=== PATIENT | female | born 1965 | race Caucasian/White ===

== ENCOUNTER 2016-09-16 09:41 | Inpatient (IN) | payer MEDICAID ==
[2016-09-16] VITALS (8 sets, daily range): BP systolic 101–122; BP diastolic 53–75
[~2016-09-16] VITALS: Ht 165.1 cm; Wt 90.6 kg
--- NOTE | ~2016-09-16 | PR ---
[place], [place] PROGRESS NOTE NAME: DEBORA GUTIERREZ UNIT #: [id number] ROOM: 407 DOCTOR: JOHNNY JAIME MD BIRTHDATE: [birth year] DOS: 09/19/2016 HISTORY OF PRESENT ILLNESS: A 51-year-old patient who was presented with chief complaint of multiple medical problems, among which has been atypical chest pain, and she has been investigated endoscopically, and she was found to have gastritis, hiatal hernia and reflux. The patient has been treated with PPI and Gaviscon. Significant improvement has been noticed. PAST MEDICAL HISTORY: 1. Associated with gastroesophageal reflux, suspected history of Crohn's that she is not on medication for it, and she does not have diarrhea. 2. Hyperlipidemia. 3. Gastroesophageal reflux. PAST SURGICAL HISTORY: Oophorectomy, appendectomy, cholecystectomy, tonsillectomy. LABORATORY DATA: Reviewed. Records reviewed. Doppler studies were noticed 50% stenosis bilateral internal carotid. Basic metabolic panel: Potassium of 3.0, which is addressed by staff. H and H of 10 and 31. Differential within normal limits. REVIEW OF SYSTEMS: No hematemesis, no hematochezia, no shortness of breath, no chest pain. PHYSICAL EXAMINATION: VITAL SIGNS: Stable. HEENT: Head normocephalic, nontraumatic. Mouth and buccal mucosa benign. NECK: Supple, no thyromegaly, no cervical lymphadenopathy. CHEST: Symmetric anatomy, equal expansion. No wheeze. No rhonchi. ABDOMEN: Soft. No hepato-organomegaly, no pulsatile mass. HEART: Normal sinus rhythm, no gallop, no murmur. EXTREMITIES: Benign dry. No cyanosis, no pedal edema. NEUROLOGIC: Alert and oriented. IMPRESSION: Gastritis, hiatal hernia, gastroesophageal reflux leading to atypical chest pain. PLAN: Protonix 40 mg daily, Gaviscon Extra Strength one tablet at bedtime. Antireflux: Elevation of the head of the bed, dietary modification. [place], [place] PROGRESS NOTE NAME: DEBORA GUTIERREZ UNIT #: [id number] ROOM: 407 DOCTOR: JOHNNY JAIME MD BIRTHDATE: [birth year] JOHNNY JAIME MD CM:RICARDO 1146 2025 JOHNNY JAIME MD 10/22/16 1147 interface
--- NOTE | ~2016-09-16 | CON ---
[place], [place] REPORT OF CONSULTATION NAME: DEBORA [facility]IERREZ [id number] UNIT #: [id number] ROOM: 407 DOCTOR: JOHNNY JAIME MD BIRTHDATE: [birth year] DOS: 09/17/2016 GASTROENDOSCOPIC REPORT HISTORY OF PRESENT ILLNESS: This is a 51-year-old patient who has presented with multiple medical problems, among which has been atypical chest pain, dyspepsia, reflux symptomatology. She is telling me that she has a history of Crohn's disease over the past 10 years, but she has never been treated for. She says I feel better with observing my diet. The patient had a C. diff done which was negative, Myocardial SPECT results, normal left ventricular wall motion at 65% was noticed. Hemoglobin A1c 5.4. Comprehensive metabolic panel: BUN and creatinine normal. Electrolytes hypernatremic, hyperchloremic. Checked to see if that fluid going into the patient is normal saline. Her carbon dioxide was 18. Her phosphorus and magnesium within normal limits. Cholesterol 61. B12/folate was low. PAST MEDICAL HISTORY: Hyperlipidemia, spinal stenosis, suspected Crohn's disease by history, however, on no medication, and gastroesophageal reflux. PAST SURGICAL HISTORY: Teeth extraction, appendectomy, oophorectomy, cholecystectomy, and tonsillectomy. SOCIAL HISTORY: Smoker until 2 years ago. Nonalcohol consumer. FAMILY HISTORY: Noncontributory. ALLERGIES: FLEXERIL, TESSALON, HYDROCODONE, IBUPROFEN, ROBAXIN, REGLAN, ZOFRAN. MEDICATIONS: List has been reviewed. REVIEW OF SYSTEMS: HEENT: Denies double vision, blurred vision. RESPIRATORY: Denies shortness of breath. CARDIOVASCULAR: Denies chest pain. DIGESTIVE SYSTEM: No hematemesis, no hematochezia, chest pain or nausea. PHYSICAL EXAMINATION: GENERAL: Nontoxic VITAL SIGNS: Stable. HEENT: Head normocephalic, nontraumatic. Mouth and buccal mucosa benign. NECK: Supple, no thyromegaly. CHEST: Symmetric anatomy, equal expansion. HEART: Normal sinus rhythm, no gallop, no murmur. ABDOMEN: Soft. No hepato-organomegaly. Bowel sounds present. No pulsatile mass. EXTREMITIES: No cyanosis, no pedal edema. NEUROLOGIC: Alert, oriented to time, place and person. IMPRESSION: Nausea, epigastric distress, atypical chest pain, ruling out reflux, history of Crohn's disease, history of hypernatremic, hyperchloremic, [place], [place] REPORT OF CONSULTATION NAME: DEBORA GUTIERREZ UNIT #: [id number] ROOM: 407 DOCTOR: YENI RUBIO,JOHNNY BIRTHDATE: [birth year] status post likely secondary to post normal saline correction, history of anemia, normochromic indices. However, her B12 and folate 249 and 4.0 respectively. PLAN AND DISCUSSION: We are going to organize for endoscopic assessment of upper GI tract as far as Crohn's is concerned. She requires followup as an outpatient and chronic reassessment. Thank you very much indeed. JOHNNY JAIME MD CM:CONSTR:REPORT OF CONSULTATION 1400 10/27/16 0956 interface
--- NOTE | ~2016-09-16 | CON ---
[place], [place] REPORT OF CONSULTATION NAME: DEBORA GUTIERREZ UNIT #: [id number] ROOM: 407 DOCTOR: JOHNNY JAIME MD BIRTHDATE: [birth year] DOS: 09/19/2016 HISTORY OF PRESENT ILLNESS: A 51-year-old patient who was presented with chief complaint of multiple medical problems, among which has been atypical chest pain, and she has been investigated endoscopically, and she was found to have gastritis, hiatal hernia and reflux. The patient has been treated with PPI and Gaviscon. Significant improvement has been noticed. PAST MEDICAL HISTORY: 1. Associated with gastroesophageal reflux, suspected history of Crohn's that she is not on medication for it, and she does not have diarrhea. 2. Hyperlipidemia. 3. Gastroesophageal reflux. PAST SURGICAL HISTORY: Oophorectomy, appendectomy, cholecystectomy, tonsillectomy. LABORATORY DATA: Reviewed. Records reviewed. Doppler studies were noticed 50% stenosis bilateral internal carotid. Basic metabolic panel: Potassium of 3.0, which is addressed by staff. H and H of 10 and 31. Differential within normal limits. REVIEW OF SYSTEMS: No hematemesis, no hematochezia, no shortness of breath, no chest pain. PHYSICAL EXAMINATION: VITAL SIGNS: Stable. HEENT: Head normocephalic, nontraumatic. Mouth and buccal mucosa benign. NECK: Supple, no thyromegaly, no cervical lymphadenopathy. CHEST: Symmetric anatomy, equal expansion. No wheeze. No rhonchi. ABDOMEN: Soft. No hepato-organomegaly, no pulsatile mass. HEART: Normal sinus rhythm, no gallop, no murmur. EXTREMITIES: Benign dry. No cyanosis, no pedal edema. NEUROLOGIC: Alert and oriented. IMPRESSION: Gastritis, hiatal hernia, gastroesophageal reflux leading to atypical chest pain. PLAN: Protonix 40 mg daily, Gaviscon Extra Strength one tablet at bedtime. Antireflux: Elevation of the head of the bed, dietary modification. [place], [place] REPORT OF CONSULTATION NAME: DEBORA GUTIERREZ UNIT #: [id number] ROOM: 407 DOCTOR: JOHNNY JAIME MD BIRTHDATE: [birth year] JOHNNY JAIME MD CM:CONSTR:REPORT OF CONSULTATION 1146 10/22/16 1152 UDAY SINGLETARY.TM
--- NOTE | ~2016-09-16 | CON ---
[place], [place] REPORT OF CONSULTATION NAME: DEBORA PAIGE UNIT #: [id number] ROOM: 407 DOCTOR: FAB RUBIO,MONICA BIRTHDATE: [birth year] DOS: 09/17/2016 ADDENDUM CARDIOLOGY CONSULTATION REASON FOR CONSULTATION: Chest pain. This note is an addendum to the note dictated by Dr. Danilo Rodriguez. His exam and assessment reflects my work. I personally examined the patient. Rhythm strips, labs and imaging studies were reviewed. Ms. Paige has intermittent atypical chest pain, which is sharp, substernal area and the cardiac enzymes were negative. PHYSICAL EXAMINATION: FOCUSED CARDIAC EXAM: Heart was regular rhythm. No S3. Grade 1/6 systolic murmur. EXTREMITIES: Showed trace edema. Distal pulses are palpable. LUNGS: A few scattered rhonchi. IMPRESSION: 1. Chest pain, atypical. 2. Nausea, vomiting and abdominal pain. 3. History of Crohn's disease. 4. Diabetes type 2. 5. Dyslipidemia. RECOMMENDATIONS 1. She has no further chest pain. 2. Continue current medications. 3. Lexiscan stress today for evaluation of chest pain. 4. If the stress test is unremarkable, she will need further testing from the GI consultants. 5. Risk factor modification discussed. 6. Check a 2D echo for LV function and valvular function. MONICA SANON MD CM:CONSTR:REPORT OF CONSULTATION 0216 09/20/16 1408 interface
--- NOTE | ~2016-09-16 | O ---
[place], [place] OPERATIVE NOTE NAME: DEB[facility]A [facility]UTIERREZ [id number] UNIT #: [id number] ROOM: 407 DOCTOR: JOHNNY JAIME MD BIRTHDATE: [birth year] DOS: 09/17/2016 HISTORY OF PRESENT ILLNESS: A 51-year-old patient who has presented with chief complaint of epigastric abdominal pain, dyspepsia, atypical chest pain, undergoing investigation. PROCEDURE: Today's procedure part of investigation is panendoscopy plus biopsy. PREMEDICATION: Versed and Diprivan. SCOPE: Olympus forward-viewing gastroscope Q10 video. REPORT: After putting the patient in the left lateral position and after application of lubricant to the scope, the scope was introduced. Thereafter, under direct visualization, I advanced through the length of esophagus without difficulty into gastric pouch. A small hiatal hernia noticed. Gastritis of mild degree was seen. Antrum was biopsied. Duodenal bulb, second and third part within normal limits. The patient extubated, tolerated procedure well. IMPRESSION: Small hiatal hernia, gastritis, status post biopsy. PLAN AND DISCUSSION: Protonix 40 mg q. day. Gaviscon 1 tablet at bedtime. Elevation of the head of the bed 6 inches all time and clinical reassessment. JOHNNY JAIME MD CM:OPRECORD:OPERATIVE NOTE 1509 190 JOHNNY JAIME MD 09/17/16 190 interface
--- NOTE | ~2016-09-16 | ST ---
[place], [place] EXERCISE STRESS TEST REPORT NAME: [facility]IER[facility]Z [facility]: [id number] UNIT #: [id number] ROOM: 407 DOCTOR: FAB RUBIO,MONICA BIRTHDATE: [birth year] DOS: 09/17/2016 LEXISCAN STRESS TEST REASON FOR TEST: Evaluation of chest pain. PHYSICAL EXAMINATION: NECK: Supple. LUNGS: Clear anteriorly. HEART: Regular rhythm. PROTOCOL: Lexiscan protocol. Maximum heart rate 112. Peak blood pressure 100/63. SYMPTOMS: The patient had some chest tightness and also nausea and vomiting requiring intravenous aminophyllin 50 mg. EKG: Resting EKG showed sinus rhythm. Stress EKG showed no ischemia, no arrhythmias. The patient had incomplete right bundle branch block with ST-T changes in lead V1 to V3 on the resting EKG. The stress EKG showed no ischemia, no arrhythmias. POST-STRESS COMPLICATIONS: None. The patient received a total of 0.4 mg of Lexiscan. Chest tightness resolved spontaneously, had nausea responded to intravenous aminophyllin 50 mg. MONICA SANON MD CM:STRESS:EXERCISE STRESS TEST REPORT 1654 0139 MONICA SANON MD
[~2016-09-16 09:41] MED LIST: ASPIRIN81 M1 PO; MOTRIN800 MG PO; NEXIUM40 MG PO; OXYCODONE HCL5 MG PO; OXYCODONE5 M1 PO; PHENERGAN25 M3 PO; PREDNISONE50 MG PO
[2016-09-16] MEDS ORDERED: Lopressor25 MG PO (09:50)
[2016-09-16] MEDS ORDERED: ATORVASTATIN CA40 M1 PO (09:50)
[2016-09-16] MEDS ORDERED: OXYCODONE HCL5 MG PO (09:50)
[2016-09-16] MEDS ORDERED: ASPIRIN81 M1 PO (09:51)
[2016-09-16 10:34] LABS: HEMATOCRIT 46.3 % (37.0-47.0); HEMOGLOBIN 15.3 g/dl (12.0-16.0); MEAN CELL VOLUME 87.4 fl (81.0-99.0); MEAN CORPUSCULAR HGB 28.9 pg (27.0-31.0); MEAN PLATELET VOLUME 9.7 fl (9.6-12.3); PLATELET COUNT AUTOMATED 334 10*3/uL (130-400); RED CELL DISTRI WIDTH 13.7 % (0-14.5); WHITE BLOOD COUNT 22.5 10*3/uL (4.8-10.8)
[2016-09-16 10:50] LABS: ALBUMIN 4.5 gm/dl (3.1-4.5); ALKALINE PHOSPHATASE 137 U/L (45-117); BILIRUBIN, TOTAL 0.6 mg/dl (0.2-1.0); BUN 21 mg/dl (7-24); CARBON DIOXIDE 21 mmol/L (21-32); CHLORIDE 104 mmol/L (98-107); EST GLOM FILT AFRICAN AMERICAN 35 ml/min; GLUCOSE 166 mg/dL (65-99); POTASSIUM 3.8 mmol/L (3.5-5.1); SGOT/AST 16 IU/L (3-35); SGPT/ALT 25 U/L (12-78); SODIUM 138 mmol/L (136-145); TOTAL PROTEIN 9.2 gm/dL (6.4-8.2)
[2016-09-16 10:51] LABS: EOSINOPHIL # 0.5 10*3/uL (0-0.4); EOSINOPHILS 2 % (1-4); LYMPHOCYTE # 1.4 10*3/uL (1.3-4.4); MONOCYTE # 0.9 10*3/uL (0.1-1.0); NEUTROPHIL # 19.8 10*3/uL (2.3-7.9); NEUTROPHILS 88 % (47-73); TOTAL CELLS COUNTED 100 #CELLS
[2016-09-16 10:52] LABS: PLATELET SUFFICIENCY NORMAL (NORMAL)
[2016-09-16 10:53] LABS: TROPONIN I < 0.015 ng/ml (<0.5)
[2016-09-16 12:31] LABS: LA>2 REFLEX 2 HR DRAW NOW
[2016-09-16] MEDS ORDERED: OXYCODONE5 M1 PO (14:25)
[2016-09-16] MEDS ORDERED: METOPROLOL25 MG PO (14:26)
[2016-09-16 14:55] LABS: LA>2 REFLEX 4 HR DRAW NOW
[2016-09-16 18:10] LABS: CKMB 0.6 ng/ml (0.5-3.6); CPK 48 U/L (26-192)
[2016-09-16 18:11] LABS: TROPONIN I < 0.015 ng/ml (<0.5)
[2016-09-17] VITALS (8 sets, daily range): BP systolic 90–128; BP diastolic 44–74
[2016-09-17 00:43] LABS: CKMB 0.5 ng/ml (0.5-3.6); CPK 55 U/L (26-192)
[2016-09-17 00:44] LABS: TROPONIN I < 0.015 ng/ml (<0.5)
[2016-09-17 06:18] LABS: BASO % 0.2 % (0.0-1.0); IG # 0.1 10*3/uL (0.0-0.1); LYMPH # 0.7 10*3/uL (1.3-4.4); LYMPH % 5.6 % (27.0-41.0); MEAN CELL VOLUME 84.7 fl (81.0-99.0); MEAN CORPUSCULAR HGB 28.8 pg (27.0-31.0); MEAN PLATELET VOLUME 9.7 fl (9.6-12.3); MONO # 0.5 10*3/uL (0.1-1.0); MONO % 4.2 % (3.0-9.0); NEUT % 89.3 % (47.0-73.0); PLATELET COUNT AUTOMATED 252 10*3/uL (130-400); RED BLOOD COUNT 3.54 10*6/uL (4.10-5.10); RED CELL DISTRI WIDTH 13.9 % (0-14.5); WHITE BLOOD COUNT 12.3 10*3/uL (4.8-10.8)
[2016-09-17 06:20] LABS: HEMOGLOBIN 10.2 g/dl (12.0-16.0)
[2016-09-17 06:26] LABS: CKMB 1.1 ng/ml (0.5-3.6); CPK 60 U/L (26-192)
[2016-09-17 06:29] LABS: TROPONIN I < 0.015 ng/ml (<0.5)
[2016-09-17 06:32] LABS: VITAMIN D, 25-HYDROXY 11.8 ng/mL (30-100)
[2016-09-17 06:33] LABS: FOLIC ACID 4.08 ng/mL (>5.38)
[2016-09-17 06:37] LABS: ALBUMIN 3.1 gm/dl (3.1-4.5); ALKALINE PHOSPHATASE 90 U/L (45-117); BILIRUBIN, TOTAL 0.3 mg/dl (0.2-1.0); CARBON DIOXIDE 18 mmol/L (21-32); CHLORIDE 115 mmol/L (98-107); CHOLESTEROL 144 mg/dL (<200); EST GLOM FILT AFRICAN AMERICAN > 60 ml/min; GLUCOSE 120 mg/dL (65-99); HDL CHOLESTEROL 61 mg/dl (40-60); LDL CHOLESTEROL 70 mg/dL (9-159); MAGNESIUM 1.7 mg/dL (1.5-2.1); POTASSIUM 3.6 mmol/L (3.5-5.1); SGOT/AST 12 IU/L (3-35); SGPT/ALT 19 U/L (12-78); SODIUM 146 mmol/L (136-145); THYROID STIM HORMONE (HS) 0.288 uIU/ml (0.358-4.75); TOTAL PROTEIN 6.1 gm/dL (6.4-8.2); TRIGLYCERIDES 67 mg/dl (<150); VLDL CHOLESTEROL 13 mg/dL (6-40)
[2016-09-17 06:38] LABS: BUN 11 mg/dl (7-24)
[2016-09-17 06:43] LABS: HEMOGLOBIN A1c 5.4 % (4.8-5.6)
[2016-09-18] VITALS: BP 104/54
[2016-09-18 06:22] LABS: BASO % 0.3 % (0.0-1.0); EOS # 0.1 10*3/uL (0.0-0.4); HEMATOCRIT 31.5 % (37.0-47.0); HEMOGLOBIN 10.2 g/dl (12.0-16.0); IG # 0.1 10*3/uL (0.0-0.1); LYMPH # 1.7 10*3/uL (1.3-4.4); LYMPH % 17.4 % (27.0-41.0); MEAN CORPUSCULAR HGB 28.6 pg (27.0-31.0); MEAN CORPUSCULAR HGB CONC 32.4 g/dl (33.0-37.0); MEAN PLATELET VOLUME 9.5 fl (9.6-12.3); MONO # 0.9 10*3/uL (0.1-1.0); MONO % 9.4 % (3.0-9.0); NEUT % 71.1 % (47.0-73.0); PLATELET COUNT AUTOMATED 230 10*3/uL (130-400); RED BLOOD COUNT 3.57 10*6/uL (4.10-5.10); RED CELL DISTRI WIDTH 14.3 % (0-14.5); WHITE BLOOD COUNT 9.8 10*3/uL (4.8-10.8)
[2016-09-18 06:23] LABS: BUN 11 mg/dl (7-24); CARBON DIOXIDE 23 mmol/L (21-32); CHLORIDE 110 mmol/L (98-107); EST GLOM FILT AFRICAN AMERICAN > 60 ml/min; FREE T4 1.44 ng/dl (0.76-1.46); GLUCOSE 92 mg/dL (65-99); SODIUM 145 mmol/L (136-145)
[2016-09-18 06:25] LABS: MEAN CELL VOLUME 88.2 fl (81.0-99.0)
[2016-09-18 08:00] VITALS: BP 118/62
[2016-09-18 12:00] VITALS: BP 105/50
[2016-09-18 16:00] VITALS: BP 106/59
[2016-09-18 20:00] VITALS: BP 105/59
[2016-09-19] VITALS: BP 99/55
[2016-09-19 08:00] VITALS: BP 130/63
[2016-09-19] MEDS ORDERED: D-1000 185 MG-11 TAB PO (11:51)
[2016-09-19] MEDS ORDERED: DICYCLOMINE HCL10 MG PO (11:51)
[2016-09-19] MEDS ORDERED: PREDNISONE50 MG PO (11:51)
[2016-09-19] MEDS ORDERED: B121000 MCG/1 IM (11:51)
[2016-09-19] MEDS ORDERED: PHARMASSURE FO0.4 MG PO (11:51)
[2016-09-19] MEDS ORDERED: PHENERGAN25 M3 PO (11:51)
[2016-09-19] MEDS ORDERED: FLAGYL500 MG PO (11:54)
[2016-09-19] MEDS ORDERED: Ciprofloxacin500 MG PO (11:54)
[2016-09-19 12:00] VITALS: BP 99/46
[2016-09-19 16:00] VITALS: BP 116/72
== END 2016-09-19 17:36 | disposition home or self-care (01) | DRG 871 ==
LOC: ED 09:41 → 4E 12:28 → EDHOLD 12:28 → 4E 13:18
PROVIDERS: Internal Medicine; Nurse Practitioner Family
PROC: 0DB68ZX Excision of Stomach, Via Natural or Artificial Opening Endoscopic, Diagnostic (ICD-10-PCS; principal; 2016-09-17)
DX: A41.9 Sepsis, unspecified organism (principal); N17.0 Acute kidney failure with tubular necrosis; K50.011 Crohn's disease of small intestine with rectal bleeding; E87.0 Hyperosmolality and hypernatremia; R65.20 Severe sepsis without septic shock; K52.9 Noninfective gastroenteritis and colitis, unspecified; E11.65 Type 2 diabetes mellitus with hyperglycemia; E78.5 Hyperlipidemia, unspecified; K21.9 Gastro-esophageal reflux disease without esophagitis; M54.31 Sciatica, right side; K44.9 Diaphragmatic hernia without obstruction or gangrene; M48.00 Spinal stenosis, site unspecified; S81.811A Laceration without foreign body, right lower leg, initial encounter; K29.70 Gastritis, unspecified, without bleeding; Z90.710 Acquired absence of both cervix and uterus; Z90.721 Acquired absence of ovaries, unilateral; Z90.49 Acquired absence of other specified parts of digestive tract; Z98.890 Other specified postprocedural states; Z87.891 Personal history of nicotine dependence; Z82.49 Family history of ischemic heart disease and other diseases of the circulatory system; Z80.0 Family history of malignant neoplasm of digestive organs; Z82.0 Family history of epilepsy and other diseases of the nervous system; Z88.6 Allergy status to analgesic agent; Z88.8 Allergy status to other drugs, medicaments and biological substances; Z79.82 Long term (current) use of aspirin; Z79.899 Other long term (current) drug therapy; X58.XXXA Exposure to other specified factors, initial encounter; Y93.89 Activity, other specified; Y92.89 Other specified places as the place of occurrence of the external cause; Y99.8 Other external cause status

== ENCOUNTER 2017-01-31 11:21 | Inpatient (IN) | payer MEDICAID ==
[2017-01-31] VITALS (7 sets, daily range): BP systolic 105–140; BP diastolic 60–85
[~2017-01-31] VITALS: Ht 165 cm; Wt 90.9 kg
--- NOTE | ~2017-01-31 | ST ---
[place], [place] EXERCISE STRESS TEST REPORT NAME: [facility]UTIERREZ [id number] UNIT #: [id number] ROOM: 402 DOCTOR: EVELYNE RUBIO,NARENDRA BIRTHDATE: [birth year] DOS: INDICATION: Chest pain. PROCEDURE: The patient was brought into the stress lab. The procedure was explained with risks, benefits, and alternatives. Lexiscan was injected. Following the injection, there was no evidence of any significant ST or T-wave changes suggestive of myocardial ischemia. No arrhythmias were noted. Resting blood pressure 116/78 with ending blood pressure 112/64. Electrocardiogram: Resting electrocardiogram showed normal sinus rhythm with heart rate of 65 with RSR prime in V1. Nonspecific ST changes specifically in V1 through V3. Following the infusion, there was no evidence of any significant ST or T-wave changes suggestive of myocardial ischemia. No arrhythmias were noted. SUMMARY: 1. Adequate Lexiscan. 2. Negative Lexiscan stress test for stress-induced myocardial ischemia. 3. No arrhythmias were noted. 4. Nuclear images will be reported separately. NARENDRA STUBBS MD CM:STRESS:EXERCISE STRESS TEST REPORT 1207 2252 NARENDRA STUBBS MD
--- NOTE | ~2017-01-31 | CON ---
[place], [place] REPORT OF CONSULTATION NAME: DEBORA GUTIERREZ UNIT #: [id number] ROOM: 402 DOCTOR: JOHNNY JAIME MD BIRTHDATE: [birth year] DOS: HISTORY OF PRESENT ILLNESS: A 51-year-old patient who has presented with chief complaint of epigastric abdominal pain. The patient's pain location is subxiphoid. Patient with chronic lower back pain. The patient on oxycodone. The patient carries ambiguous history of Crohn's disease for which she has never been documented neither she has been on medication for. Initial white blood cell was 11, H and H of 13 and 38, differential INR was 0.9. Comprehensive metabolic panel essentially unremarkable. Electrolyte, liver function tests, troponin all within normal limits. Chest x-ray was normal. Lipase was 91, normal. CT scan of the abdomen and pelvis, status post cholecystectomy, normal CT scan. PAST MEDICAL HISTORY: Associated borderline obesity, hyperlipidemia, congestive heart failure, hiatal hernia, gastroesophageal reflux. PAST SURGICAL HISTORY: Appendectomy, chronic lower back surgery, teeth extraction, cholecystectomy, tonsillectomy. SOCIAL HISTORY: Smoker, nonalcohol consumer actively. FAMILY HISTORY: Noncontributory. ALLERGIES: Multiple medications recognized including with metoclopramide. MEDICATIONS: List reviewed including esomeprazole 40 mg daily, atorvastatin and aspirin. Ipratropium, albuterol, oxycodone. REVIEW OF SYSTEMS: HEENT: Denies double vision, blurred vision. RESPIRATORY: Denies shortness of breath. CARDIOVASCULAR: Denies chest pain. DIGESTIVE SYSTEM: Subxiphoid pain and ambiguous undocumented Crohn's disease. PHYSICAL EXAMINATION: VITAL SIGNS: Stable. HEENT: Head normocephalic, nontraumatic. Mouth and buccal mucosa benign, edentulous. NECK: Supple, no thyromegaly. CHEST: Symmetric anatomy, equal expansion. No wheeze, no rhonchi. HEART: Normal sinus rhythm, no gallop, no murmur. ABDOMEN: Obese, soft. No hepato-organomegaly. Bowel sounds present. No pulsatile mass. EXTREMITIES: No cyanosis, no pedal edema. NEUROLOGIC: Alert, oriented to time, place, person. GENERAL: Nontoxic. Patient does not appear to be the distressed. IMPRESSION: Epigastric distress, history of hiatal hernia, multiple nonspecific complaints. [place], [place] REPORT OF CONSULTATION NAME: DEBORA GUTIERREZ UNIT #: [id number] ROOM: 402 DOCTOR: JOHNNY JAIME MD BIRTHDATE: [birth year] OTHER ADJUNCTIVE DIAGNOSES: As outlined in the paragraph of past medical and surgical history. PLAN AND DISCUSSION: Endoscopy of upper tract. Thank you very much indeed. JOHNNY JAIME MD CM:CONSTR:REPORT OF CONSULTATION 1224 02/03/17 0240 interface
--- NOTE | ~2017-01-31 | CON ---
[place], [place] REPORT OF CONSULTATION NAME: DEBORA GUTIERREZ UNIT #: [id number] ROOM: 402 DOCTOR: NARENDRA STUBBS MD BIRTHDATE: [birth year] DOS: 02/03/2017 REQUESTING PHYSICIAN: Dr. Jarvis. REASON FOR CONSULTATION: Chest pain consistent with angina. ASSESSMENT: 1. Current presentation with sudden onset of severe chest pain woke patient up in the morning, associated with nausea, vomiting, and diaphoresis. 2. Progressive complaint of heaviness, tightness over the past 3-4 months. 3. PND, orthopnea along with lower extremity edema with weight gain over the past month. 4. Symptomatic palpitation. 5. Diabetes. 6. Hyperlipidemia. 7. Obesity with probability of obstructive sleep apnea. 8. Early family history of heart disease. 9. Previous history of tobacco abuse. PLAN: 1. Cycle cardiac enzymes. 2. Keep patient n.p.o. for a walking stress test. 3. Initiate Enteric-coated aspirin 81 mg. 4. Lopressor 12.5 mg 1 tablet p.o. b.i.d. 5. Imdur 30 mg 1 tab p.o. every day. 6. Lipid management for an LDL less than 70 mg/dL (The patient already on Lipitor). 7. Consider sleep study. 8. Early followup in our clinic in [place] within 1-2 weeks. 9. Call for any change in symptoms. 10. Exercise, weight loss. HISTORY AND PHYSICAL: The patient is a pleasant 51-year-old female unknown to our practice, who was referred by Dr. Jarvis for further evaluation of complaint of chest pain that started that woke her up the last night. In the morning, pain was sharp, did reach quickly 10/10 in lesser than a minute. The pain associated with nausea, vomiting, and diaphoresis brought her to the hospital. Apparently, the patient over the past 3 months, had been complaining of heaviness, tightness, substernal. It can reach occasionally to 10/10, does radiate to the left side of the jaw. The pain usually almost always brought in by activity and relieved with rest. The patient was hardly complaining of symptomatic palpitation, described as skipping. Also, over the past month, the patient has been noticing some PND and orthopnea. No fever, no chills. Maintained a stable appetite. The patient reporting weight gain over the past 3-4 months, about 20 pounds. Occasional lower extremity edema. No dizziness, lightheadedness or near syncope. No fever, no chills, no night sweats. PAST MEDICAL HISTORY: As detailed in my assessment. SOCIAL HISTORY: The patient quit smoking about 3 years ago. She smoked for 15 [place], [place] REPORT OF CONSULTATION NAME: DEBORA GUTIERREZ UNIT #: [id number] ROOM: [facility] DOCTOR: NARENDRA STUBBS MD BIRTHDATE: 63 years before that. No current alcohol or history of illicit drug abuse. FAMILY HISTORY: The patient's parents both , her mother at age 63 from CVA. Her dad had colon cancer, but had myocardial infarction at age 65. She has 1 brother and 2 sisters with no reported heart problems. CURRENT MEDICATIONS: Ultram, Phenergan, Lovenox, Lipitor, DuoNeb, Restoril, bisacodyl, and Tylenol. ALLERGIES: The patient is allergic to MORPHINE, HYDROCODONE and TESSALON. REVIEW OF SYSTEMS: Currently, the patient denies any headache, diplopia or blurry vision. No fever, no chills, no night sweats. No abdominal pain. The patient does have chronic abdominal pain due to multiple surgeries. No bright red blood per rectum or tarry stools. The patient admits to joint pain, but no muscular pain. No anxiety, no depression. No polyuria, no polydipsia, no skin rash. Review of all other systems has been negative. PHYSICAL EXAMINATION: GENERAL: The patient is alert, oriented x3, quite pleasant. VITAL SIGNS: Blood pressure was 108/62, heart rate 67, respiratory rate of 14, temperature 98.4. HEENT: Extraocular muscles intact. Pupils equal, round, reactive to light. Conjunctivae: No pallor. Throat: No petechiae. NECK: Good carotid upstroke. Faint bruit could be heard over the right. No lymphadenopathy or thyromegaly. HEART: S1, S2 with holosystolic murmur in the left upper sternal border. No rub, no sternal heave. CHEST AND BACK: No deformities. LUNGS: Decreased air movement, but no maximo wheezing or rales. ABDOMEN: Obese, generalized tenderness, no masses, no bruits, no rebound. LOWER EXTREMITIES: There is no significant edema, with faint distal pulses. NEUROLOGIC: Grossly nonfocal. SKIN: No significant rash. LABORATORY DATA: White count 6.5, hemoglobin is 10.5, platelets 219,000. Sed rate 40, potassium 3.5, BUN 6, creatinine 0.7, GFR more than 60%. Low calcium of , initially 7.9. C-reactive protein 0.81. [place], [place] REPORT OF CONSULTATION NAME: DEBORA GUTIERREZ UNIT #: [id number] ROOM: 402 DOCTOR: NARENDRA STUBBS MD BIRTHDATE: [birth year] NARENDRA STUBBS MD CM:CONSTR:REPORT OF CONSULTATION 1203 02/03/17 0468 interface
--- NOTE | ~2017-01-31 | O ---
[place], [place] OPERATIVE NOTE NAME: DEB[facility]A [facility]UTIERREZ [facility] [id number] UNIT #: [id number] ROOM: 402 DOCTOR: JOHNNY JAIME MD BIRTHDATE: [birth year] DOS: INDICATIONS: A 51-year-old patient who presented with nonspecific epigastric abdominal pain, undergoing investigation. The patient is with numerous nonspecific complaints as well. The patient has been previously evaluated and reevaluated this time. PROCEDURE: Today's procedure part of investigation is panendoscopy plus biopsy. PREMEDICATION: Versed and Diprivan. SCOPE: Olympus forward-viewing gastroscope Q10 video. REPORT: After putting the patient in left lateral position and application of lubricant to the scope, the scope was introduced. Thereafter, under direct visualization, I advanced through the length of esophagus without difficulty. A small hiatal hernia was noticed, photographed, gastric pouch was entered, gastritis noticed. Antrum biopsy obtained. Duodenal bulb, second and third part within normal limits. The patient was gradually extubated, tolerated the procedure well. IMPRESSION: Mild gastritis, status post biopsy, hiatal hernia and mild reflux. PLAN AND DISCUSSION: Omeprazole 40 mg daily would suffice, antireflux measures. The patient on pain medication chronically for back pain and followup can be done as an outpatient. Thank you very much indeed. JOHNNY JAIME MD CM:OPRECORD:OPERATIVE NOTE 1244 182 JOHNNY JAIME MD 02/02/17 182 interface
[~2017-01-31 11:21] MED LIST changes: +ATORVASTATIN CA40 M1 PO; +B121000 MCG/1 IM; +Ciprofloxacin500 MG PO; +D-1000 185 MG-11 TAB PO; +DICYCLOMINE HCL10 MG PO; +DOXYCYCLINE100 M3 PO; +DUONEB 3 MG/3 ML3 M1 NEB; +FLAGYL500 MG PO; +Lopressor25 MG PO; +METOPROLOL25 MG PO; +PHARMASSURE FO0.4 MG PO; +PREDNISONE10 MG PO; +ROBITUSSIN AC 110 ML PO
[2017-01-31 11:51] LABS: BASO % 0.2 % (0.0-1.0); EOS # 0.1 10*3/uL (0.0-0.4); EOS % 0.9 % (1.0-4.0); HEMATOCRIT 38.5 % (37.0-47.0); HEMOGLOBIN 13.3 g/dl (12.0-16.0); LYMPH # 1.3 10*3/uL (1.3-4.4); LYMPH % 11.1 % (27.0-41.0); MEAN CORPUSCULAR HGB 29.4 pg (27.0-31.0); MEAN CORPUSCULAR HGB CONC 34.5 g/dl (33.0-37.0); MEAN PLATELET VOLUME 9.3 fl (9.6-12.3); MONO # 0.7 10*3/uL (0.1-1.0); MONO % 6.2 % (3.0-9.0); NEUT # 9.4 10*3/uL (2.3-7.9); NEUT % 81.3 % (47.0-73.0); PLATELET COUNT AUTOMATED 336 10*3/uL (130-400); RED BLOOD COUNT 4.53 10*6/uL (4.10-5.10); RED CELL DISTRI WIDTH 13.6 % (0-14.5); WHITE BLOOD COUNT 11.6 10*3/uL (4.8-10.8)
[2017-01-31 12:00] LABS: INTERNATIONAL NORM RATIO 0.9 (2.0-3.5)
[2017-01-31 12:10] LABS: ALKALINE PHOSPHATASE 110 U/L (45-117); BILIRUBIN, TOTAL 0.4 mg/dl (0.2-1.0); BUN 12 mg/dl (7-24); CARBON DIOXIDE 21 mmol/L (21-32); CHLORIDE 107 mmol/L (98-107); EST GLOM FILT AFRICAN AMERICAN > 60 ml/min; GLUCOSE 112 mg/dL (65-99); MAGNESIUM 2.2 mg/dL (1.5-2.1); POTASSIUM 3.8 mmol/L (3.5-5.1); SGOT/AST 19 IU/L (3-35); SGPT/ALT 21 U/L (12-78); SODIUM 141 mmol/L (136-145)
[2017-01-31 12:14] LABS: TROPONIN I < 0.015 ng/ml (<0.045)
[2017-02-01] VITALS: BP 110/77
[2017-02-01 04:00] VITALS: BP 116/70
[2017-02-01 06:53] LABS: BUN 15 mg/dl (7-24); CARBON DIOXIDE 24 mmol/L (21-32); CHLORIDE 111 mmol/L (98-107); EST GLOM FILT AFRICAN AMERICAN > 60 ml/min; GLUCOSE 97 mg/dL (65-99); MAGNESIUM 1.9 mg/dL (1.5-2.1); POTASSIUM 3.5 mmol/L (3.5-5.1); SODIUM 144 mmol/L (136-145)
[2017-02-01 06:54] LABS: C-REACTIVE PROTEIN 0.81 MG/DL (0-0.3); PHOSPHOROUS 3.2 mg/dL (2.5-4.9)
[2017-02-01 07:12] LABS: BASO % 0.4 % (0.0-1.0); EOS # 0.2 10*3/uL (0.0-0.4); EOS % 3.7 % (1.0-4.0); HEMATOCRIT 31.7 % (37.0-47.0); HEMOGLOBIN 10.6 g/dl (12.0-16.0); LYMPH # 1.3 10*3/uL (1.3-4.4); LYMPH % 21.9 % (27.0-41.0); MEAN CELL VOLUME 88.8 fl (81.0-99.0); MEAN CORPUSCULAR HGB 29.7 pg (27.0-31.0); MEAN CORPUSCULAR HGB CONC 33.4 g/dl (33.0-37.0); MEAN PLATELET VOLUME 9.6 fl (9.6-12.3); MONO # 0.5 10*3/uL (0.1-1.0); MONO % 9.1 % (3.0-9.0); NEUT # 3.7 10*3/uL (2.3-7.9); NEUT % 64.5 % (47.0-73.0); PLATELET COUNT AUTOMATED 234 10*3/uL (130-400); RED BLOOD COUNT 3.57 10*6/uL (4.10-5.10); RED CELL DISTRI WIDTH 13.7 % (0-14.5); WHITE BLOOD COUNT 5.7 10*3/uL (4.8-10.8)
[2017-02-01 08:00] VITALS: BP 110/63
[2017-02-01 12:00] VITALS: BP 112/57
[2017-02-01 16:00] VITALS: BP 127/72
[2017-02-01 20:00] VITALS: BP 139/74
[2017-02-02] VITALS (9 sets, daily range): BP systolic 112–133; BP diastolic 63–76
[2017-02-02 07:25] LABS: BASO % 0.3 % (0.0-1.0); EOS # 0.3 10*3/uL (0.0-0.4); EOS % 3.9 % (1.0-4.0); HEMATOCRIT 31.2 % (37.0-47.0); HEMOGLOBIN 10.5 g/dl (12.0-16.0); LYMPH # 1.2 10*3/uL (1.3-4.4); LYMPH % 18.2 % (27.0-41.0); MEAN CELL VOLUME 87.2 fl (81.0-99.0); MEAN CORPUSCULAR HGB 29.3 pg (27.0-31.0); MEAN CORPUSCULAR HGB CONC 33.7 g/dl (33.0-37.0); MEAN PLATELET VOLUME 9.2 fl (9.6-12.3); MONO # 0.7 10*3/uL (0.1-1.0); NEUT # 4.4 10*3/uL (2.3-7.9); NEUT % 67.3 % (47.0-73.0); PLATELET COUNT AUTOMATED 219 10*3/uL (130-400); RED BLOOD COUNT 3.58 10*6/uL (4.10-5.10); RED CELL DISTRI WIDTH 13.5 % (0-14.5); WHITE BLOOD COUNT 6.5 10*3/uL (4.8-10.8)
[2017-02-02 07:57] LABS: BUN 6 mg/dl (7-24); CARBON DIOXIDE 25 mmol/L (21-32); CHLORIDE 110 mmol/L (98-107); GLUCOSE 97 mg/dL (65-99); POTASSIUM 3.2 mmol/L (3.5-5.1); SODIUM 145 mmol/L (136-145)
[2017-02-02 08:00] LABS: ALKALINE PHOSPHATASE 90 U/L (45-117); BILIRUBIN, TOTAL 0.3 mg/dl (0.2-1.0); EST GLOM FILT AFRICAN AMERICAN > 60 ml/min; SGOT/AST 18 IU/L (3-35); SGPT/ALT 15 U/L (12-78); TOTAL PROTEIN 6.2 gm/dL (6.4-8.2)
[2017-02-03] VITALS: BP 126/64
[2017-02-03 07:23] LABS: BUN 6 mg/dl (7-24); CARBON DIOXIDE 23 mmol/L (21-32); CHLORIDE 109 mmol/L (98-107); EST GLOM FILT AFRICAN AMERICAN > 60 ml/min; GLUCOSE 92 mg/dL (65-99); POTASSIUM 3.5 mmol/L (3.5-5.1); SODIUM 144 mmol/L (136-145)
[2017-02-03 08:00] VITALS: BP 108/62
[2017-02-03 16:00] VITALS: BP 127/74
[2017-02-03] MEDS ORDERED: LOPRESSOR25 MG PO (16:45)
[2017-02-03] MEDS ORDERED: IMDUR SA30 MG PO (16:45)
[2017-02-03] MEDS ORDERED: CARAFATE1 G1 PO (17:07)
== END 2017-02-03 18:55 | disposition home or self-care (01) | DRG 392 ==
LOC: ED 11:21 → 4E 14:56 → EDHOLD 14:56 → 4E 15:19
PROVIDERS: Emergency Medicine; Internal Medicine; Student in an Organized Health Care Education/Training Program
PROC: 0DB68ZX Excision of Stomach, Via Natural or Artificial Opening Endoscopic, Diagnostic (ICD-10-PCS; principal; 2017-02-02)
PROC: 4A02XM4 Measurement of Cardiac Total Activity, External Approach (ICD-10-PCS; 2017-02-03)
DX: K21.9 Gastro-esophageal reflux disease without esophagitis (principal); I50.32 Chronic diastolic (congestive) heart failure; K50.919 Crohn's disease, unspecified, with unspecified complications; E83.41 Hypermagnesemia; E83.51 Hypocalcemia; E87.8 Other disorders of electrolyte and fluid balance, not elsewhere classified; D72.820 Lymphocytosis (symptomatic); E78.00 Pure hypercholesterolemia, unspecified; E11.9 Type 2 diabetes mellitus without complications; G47.33 Obstructive sleep apnea (adult) (pediatric); M54.31 Sciatica, right side; E66.09 Other obesity due to excess calories; K29.70 Gastritis, unspecified, without bleeding; K44.9 Diaphragmatic hernia without obstruction or gangrene; Z90.49 Acquired absence of other specified parts of digestive tract; Z90.710 Acquired absence of both cervix and uterus; Z90.721 Acquired absence of ovaries, unilateral; Z87.891 Personal history of nicotine dependence; Z80.0 Family history of malignant neoplasm of digestive organs; Z82.0 Family history of epilepsy and other diseases of the nervous system; Z88.6 Allergy status to analgesic agent; Z88.8 Allergy status to other drugs, medicaments and biological substances; Z79.82 Long term (current) use of aspirin; Z79.1 Long term (current) use of non-steroidal anti-inflammatories (NSAID); Z79.899 Other long term (current) drug therapy; Z68.33 Body mass index [BMI] 33.0-33.9, adult; R19.7 Diarrhea, unspecified

== ENCOUNTER 2017-05-30 16:18 | Inpatient (IN) | payer MEDICAID ==
[~2017-05-30] VITALS: Ht 165.1 cm; Wt 87.1 kg
--- NOTE | ~2017-05-30 | PR ---
[place], [place] PROGRESS NOTE NAME: DEBORA GUTIERREZ UNIT #: [id number] ROOM: 410 DOCTOR: ALYSON GARIBAY MD BIRTHDATE: [birth year] DOS: 06/03/2017 SUBJECTIVE: She has been noted with reduction of respiratory symptoms. The coughing has been noted decreased after bronchoscopy. Denies symptoms of chest pain or any abdominal pain. The patient denies symptoms of hemoptysis. OBJECTIVE: VITAL SIGNS: For the patient which were recorded shows respiratory rate 18, heart rate 74, blood pressure 122/75 to 115/72. HEENT: Showed no new change. NECK: Supple. CARDIOVASCULAR: S1, S2 audible. LUNGS: Noted with scattered crackles and wheezing in the lungs. ABDOMEN: Soft, nontender. EXTREMITIES: Without any edema, clubbing or cyanosis. LABORATORY DATA: The urine for legionella antigen and pneumococcal antigen were both noted negative. Culture of the bronchial washing shows normal earl. The Gram stain bronchial washings yesterday with moderate white blood cells with few epithelial cells, no microorganisms seen. Vancomycin trough level was noted at 11.2. CMP of the patient on 06/03/2017 shows glucose 179, BUN and creatinine were normal. The blood culture for the patient was noted for Staphylococcus epidermidis on 05/30/2017, most likely to consider a contaminant. IMPRESSION: 1. Bilateral acute pneumonia. 2. Mucus impaction in addition to the pneumonia in the patient's lower lung as well status post bronchoscopy. 3. Chest pain related to her current acute pneumonia. The patient is resolving. 4. Acute exacerbation of chronic obstructive pulmonary disease, slow improvement. 5. History of past nicotine use. PLAN OF MANAGEMENT: Continuation of the current antibiotics and bronchodilators. Obtain a chest x-ray to reassess today. Improvement post-bronchoscopy dose of the corticosteroids remains the same 40 mg b.i.d. Continuation of bronchodilators. Reduction of the antibiotic spectrum after the available bronchial washing ____ culture results. Other supportive therapy, plan to be continued per usual care and plan of management. [place], [place] PROGRESS NOTE NAME: DEBORA GUTIERREZ UNIT #: [id number] ROOM: 410 DOCTOR: ALYSON GARIBAY MD BIRTHDATE: [birth year] ALYSON MISTRY MD CM:PNTRANS [id number] ALYSON COWAN MD 06/03/172107 interface
--- NOTE | ~2017-05-30 | PR ---
[place], [place] PROGRESS NOTE NAME: DEBORA GUTIERREZ UNIT #: [id number] ROOM: 410 DOCTOR: ALYSON GARIBAY MD BIRTHDATE: [birth year] DOS: 06/02/2017 SUBJECTIVE: The patient was still noticed severe cough, which appeared to be croupy cough. She has not been able to expectorate sputum. Chest pain for the patient described in the chest, which has been noted controlled with current pain management. The patient has not reported symptoms of hemoptysis. N.p.o. past midnight status for this patient was noted for bronchoscopy. OBJECTIVE: VITAL SIGNS: For the patient, which were recorded shows the temperature at 99.2 degree Fahrenheit, respiratory rate 20, heart rate of 70, blood pressure 142/89. Pulse oxygen saturation on room air was 97% saturation. HEENT: Examination shows moderate obesity. NECK: Supple. CARDIOVASCULAR: S1, S2 audible. LUNGS: Noted decreased breath with wheezing of the lungs. There were no crackles. ABDOMEN: Soft, nontender and obese. EXTREMITIES: Shows chronic obesity. LABORATORY DATA: CBC: WBC count 17.2, hemoglobin 10.1, hematocrit 30.0, platelet count of 264,000. CMP of the patient this morning, glucose mildly elevated at 141, potassium decreased 3.2, albumin 3.0, remaining LFTs for the patient were noted as normal. IMPRESSION: 1. The patient was noted with bilateral acute pneumonia with mucus impaction of the airways, larger on the left than the right side with recurrent chest pain, which is musculoskeletal in origin and secondary to pleurisy. 2. Elevation of white cell count, multifactorial as well. 3. Acute exacerbation of chronic obstructive pulmonary disease as well. PLAN OF MANAGEMENT: Proceed with bronchoscopy as planned. The dose of corticosteroids remains the same because of the wheezing. Any addition of changes to chest pain and medication necessary will be done after the bronchoscopy. Other supportive plan of therapy including bronchodilators and pain management will be continued accordingly. [place], [place] PROGRESS NOTE NAME: DEBORA GUTIERREZ UNIT #: [id number] ROOM: 410 DOCTOR: ALYSON GARIBAY MD BIRTHDATE: [birth year] ALYSON MISTRY MD CM:PNZAIN [id number] ALYSON COWAN MD 06/03/17 0332 interface
--- NOTE | ~2017-05-30 | CON ---
[place], [place] REPORT OF CONSULTATION NAME: DEBORA GUTIERREZ [facility] #: [id number] UNIT #: [id number] ROOM: 401 DOCTOR: ALYSON GARIBAY MD BIRTHDATE: [birth year] DOS: 05/31/2017 REASON FOR CONSULTATION: Consultation requested for the patient by Hospitalist services for assessment of acute pneumonia and other respiratory symptoms. HISTORY OF PRESENT ILLNESS: This 51-year-old female who has been unknown to me. She has been hospitalized under the care of hospitalist services on 05/30/2017. She presented to the Emergency Room. The patient has reported symptoms of ongoing acute shortness of breath. Shortness of breath has been noted with gradual worsening. The symptoms started for the past couple of days. The symptoms were associated left-sided chest pain which she described close to the shoulder area as per patient. She does have a cough, which was noted nonproductive, with associated wheezing. She was complaining of severe tightness in the chest with associated symptoms as well. Denies symptoms of hemoptysis. Denies symptoms of chest trauma. The patient was given aspirin and nitroglycerin because of left-sided chest pain, possibility of myocardial infarction as well. She has been admitted to the hospital. CT scan of the chest completed and other medical management started including the antibiotics. REVIEW OF SYSTEMS: CONSTITUTIONAL: Fatigue and tiredness. The patient was noted without any symptoms of fever or chills reported; however, generalized weakness and fatigue, was noted. EYES: Denies any burning, redness, or tenderness. EARS, NOSE, AND THROAT: No sore throat, hoarseness, otalgia, postnasal drainage or epistaxis. CARDIOVASCULAR: Current pain is left-sided, is not only consistent with typical anginal pain. However, atypical angina pain cannot be excluded. There were no symptoms of palpitations, edema or pain of the lower extremities. GASTROINTESTINAL: She has been noted one episode of nausea and vomiting. Denies symptoms of hematemesis, melena, hematochezia, abdominal pain, dysphagia or any abnormal weight loss history. GENITOURINARY: Denies dysuria, suprapubic pain, or hematuria. MUSCULOSKELETAL: No acute joint pain, redness, or tenderness. SKIN: Denies any lesions or rashes. MUSCULOSKELETAL: Denies any acute joint pain, redness, or tenderness. CENTRAL NERVOUS SYSTEM: No dizziness, headache, diplopia, or syncopal episodes and focal neurologic deficit. PAST MEDICAL HISTORY: 1. Reported history of diagnosis of chronic obstructive pulmonary disease. 2. History of congestive heart failure, systolic, diastolic unknown. 3. History of gastroesophageal reflux. 4. Acute Crohn disease. 5. History of hiatal hernia. 6. Hyperlipidemia. 7. Incomplete right bundle-branch block. 8. History of atelectasis on the right side. 8. Chronic obesity. 9. Spinal stenosis. [place], [place] REPORT OF CONSULTATION NAME: DEBORA GUTIERREZ UNIT #: [id number] ROOM: [facility] DOCTOR: FEDE COWAN MD,[facility] BIRTHDATE: [birth year] PAST SURGICAL HISTORY: Reported several that include: 1. Appendectomy. 2. Lower back surgery, diskectomy L4 and L5. 3. Hysterectomy which was noted complete. 4. Teeth extraction 5. Cholecystectomy. 6. Tonsillectomy. SOCIAL HISTORY: The patient is , has 2 children. She has been noted with tobacco use up to 3 packs of cigarettes per day and it has been discontinued approximately 2 years ago. Denies any occupation related pulmonary exposure, chronic alcohol use or any illicit drugs. FAMILY HISTORY: The patient's father at the age of 67 with colon cancer and myocardial infarction. Mother from complication related to the heart disease, also described with Alzheimer's dementia. HOME MEDICATIONS: Reported as use of aspirin, Lipitor, vitamin D, omeprazole, DuoNeb, metoprolol tartrate, and oxycodone. DRUG ALLERGIES: 1. TESSALON PERLES. 2. SOMA. 3. FLEXERIL. 4. HYDROCODONE. 5. IBUPROFEN. 6. ROBAXIN. 7. RITALIN. 8. MORPHINE AND ZOFRAN. PHYSICAL EXAMINATION: GENERAL: This is a 51-year-old female who has been currently noted awake and alert. She was using oxygen supplementation via nasal cannula. VITAL SIGNS: Height of 5 feet 5 inches, weight of 192 pounds, BMI 31.9. She was complaining of some distress because of the pain. HEENT: Head was atraumatic. Eyes nonicterus. NECK: Supple, mildly obese. CARDIOVASCULAR: S1, S2 audible. LUNGS: The patient was noted with general reduction in the breath sounds. Patient was noted with scattered expiratory wheezing. There were no crackles present. ABDOMEN: Soft, nontender, bowel sounds present. CENTRAL NERVOUS SYSTEM: Cranial nerves 2-12 intact. No focal deficits. MUSCULOSKELETAL: No deformities. SKIN: Showed no lesions or rashes. LABORATORY DATA: CBC of the patient that was done 05/30/2017, WBC count 15.4, hemoglobin and hematocrit normal, platelet count was normal. PT/PTT of patient yesterday was normal. Lactic acid 2.1 yesterday and noted as up to 3.9. CMP of [place], [place] REPORT OF CONSULTATION NAME: DEBORA GUTIERRZE UNIT #: [id number] ROOM: 401 DOCTOR: ALYSON GARIBAY MD BIRTHDATE: [birth year] the patient of 05/30/2017 was noted normal BUN and creatinine. ProBNP was noted 27 on admission. Troponin of patient 3 sets were noted normal yesterday. CBC this morning, WBC count 14.7, hemoglobin 10.3, hematocrit 30.7, platelet count normal with 89% segmented neutrophils. BMP: BUN was normal, creatinine 1.04, glucose 222. Phosphorus was 1.2, CO2 of 20. Rapid Influenza A and B, and nasal washing which were noted as negative. The chest x-ray personally reviewed from 05/30/2017 does not show any acute pulmonary disease. CT scan of the chest, which was done without contrast for this patient was rather reviewed personally. Because of the lack of the IV contrast, center structures including lymph nodes and the blood vessels cannot be clearly seen. The CT scan of the chest for the patient shows a large area of consolidation. Air bronchogram for patient noted involving the left lower lobe. Small infiltration was also noted in the right lower lobe. There were no significant pleural fluid was noted. Mediastinal structure as stated was noted limited examination because of lack of IV contrast. Moderate amount of fat was noted in the mediastinum with very mild, appeared to be nonpathological lymphadenopathy. Hilar area cannot be completely assessed. IMPRESSION: 1. The patient who has been currently admitted to the hospital noted with acute pneumonia, which was involving by low part for this patient, right and left lower lobe large consolidation. In the right lung for this patient, which was also appeared to be pleural base causing possible irritation and referred pain to the left shoulder. 2. History of chronic obstructive pulmonary disease, past tobacco use. 3. Lactic acidosis. The patient will most likely related to the current acute sepsis and pneumonia. 4. Acute exacerbation of chronic obstructive pulmonary disease or bronchial asthma. Rule out legionella infection as well versus streptococcal pneumonia and other atypical pathologies. He is currently getting Zosyn, which is a true broad spectrum intravenous antibiotics and ____ escalation antibody will be done. PLAN OF TREATMENT: The culture results will be known preliminary including the blood. Urine with urine legionella antigen and streptococcal antigen. Oxygen supplementation to maintain a saturation of 92% or greater. The dose of Solu-Medrol for patient was decreased to 60 mg b.i.d. because of wheezing were noted only minimal at this time. Other supportive plan of therapy and care. Continue pain management. Additional treatment changes will continue to be made for this patient based on progression of his illness. Thanks for allowing me to participate in the care of this patient. [place], [place] REPORT OF CONSULTATION NAME: DEBORA GUTIERREZ UNIT #: [id number] ROOM: [facility] DOCTOR: ALYSON GARIBAY MD BIRTHDATE: [birth year] ALYSON MISTRY MD CM:CONSTR:REPORT OF CONSULTATION 1145 05/31/17 1520 interface
--- NOTE | ~2017-05-30 | EKG ---
[place], [place] ELECTROCARDIOGRAM REPORT NAME: DEBORA GUTIERREZ UNIT #: [id number] ROOM: 401 DOCTOR: FEDE COWAN MD,ALYSON BIRTHDATE: [birth year] DOS: 05/30/2017 Normal sinus rhythm noted. Heart rate 84 beats per minute. Nonspecific ST-T changes were also noted. Poor R-wave progression was noted. Clinical correlation would be advised. ALYSON MISTRY MD CM:EKGRPT:ELECTROCARDIOGRAM REPORT [phone] ALYSON COWAN MD
--- NOTE | ~2017-05-30 | PR ---
[place], [place] PROGRESS NOTE NAME: [id number] UNIT #: [id number] ROOM: 410 DOCTOR: FEDE COWAN MD,ALYSON BIRTHDATE: [birth year] DOS: 06/04/2017 PULMONARY FOLLOWUP SUBJECTIVE: The patient has been still noted with coughing, but decreased; chest pain was noted better controlled. Shortness of breath, wheezing, and other symptoms have been noted well controlled. OBJECTIVE: VITAL SIGNS: Recorded and showed temperature noted as normal, respiratory rate 16, heart rate 61, and blood pressure 117/59. Pulse oxygen saturation on room air 98% saturation. HEENT: No new change. NECK: Supple. CARDIOVASCULAR: S1, S2 audible. LUNGS: Noted without any wheezing or crackles at the present time. ABDOMEN: Soft and nontender. LABORATORY DATA: Chest x-ray was noted with resolution of previous noted left lower lobe atelectasis and acute pneumonia and also resolution of the infiltrates noted in the right lower lobe. Culture of the bronchial washing noted with normal earl. IMPRESSION: 1. Progressive resolution of the current pleuritic chest pain and acute bacterial pneumonia with current medical management. 2. Resolving acute exacerbation of chronic obstructive pulmonary disease. PLAN OF MANAGEMENT: The patient has been considered for discharge home today. She was advised about tobacco cessation, taking the respiratory medication regularly and other medications as prescribed. Outpatient followup could be established for the patient if she wished to do so. ALYSON MISTRY MD CM:PNTRANS [id number] ALYSON COWAN MD 06/05/17 0306 interface
--- NOTE | ~2017-05-30 | PR ---
[place], [place] PROGRESS NOTE NAME: DEBORA GUTIERREZ [facility] #: [id number] UNIT #: [id number] ROOM: 410 DOCTOR: FEDE COWAN MDALYSON BIRTHDATE: [birth year] DOS: 06/01/2017 SUBJECTIVE: She has been noted with reduction in symptoms of shortness of breath. Coughing has been still noted very severe with chest pain that has been controlled with pain medications. She denies symptoms of hemoptysis. The cough remains nonproductive. Shortness of breath has been noted partially decreased. The oxygen supplementation was continued for this patient as previously with the nasal cannula. She denies symptoms of abdominal pain. OBJECTIVE: VITAL SIGNS: For the patient which were recorded showed the temperature of the patient noted normal, respiratory rate 20, heart rate 92, blood pressure 115/56 to 125/64. Pulse oxygen saturation was noted on 2 liters nasal cannula 94% saturation. HEENT: Chronic obesity. NECK: Supple. CARDIOVASCULAR: S1, S2 audible. LUNGS: The patient was noted with decreased breath sounds with crackles in the lung bases. They were noted greater on the left than the right side. ABDOMEN: Soft, nontender. EXTREMITIES: Shows no edema. LABORATORY DATA: CBC for this patient that was done this morning shows a WBC count 18.7, hemoglobin 9.8, hematocrit 29.8, platelet count 253,000, 94% segmented neutrophils. The CMP of the patient was noted with normal BUN and creatinine. Potassium mildly decreased at 3.3, CO2 of 20. Total protein 6.3, albumin 2.8. The patient had a V/Q scan, which was ordered by the primary care attending. The patient was noted normal V/Q scan. Echocardiogram of the patient that was completed on 05/31/2017, the patient was also noted with left ventricular ejection fraction as 70%. IMPRESSION: 1. The patient with acute bilateral lower lobe pneumonia with acute hypoxic respiratory failure. 2. Acute exacerbation of chronic obstructive pulmonary disease as well. 3. The patient with severe nonproductive cough as well. PLAN OF MANAGEMENT: The patient will benefit from therapy bronchoscopy for nonproductive cough. The patient was noted with many broad spectrum intravenous antibiotics. Bactrim needs to be decreased to the short spectrum use of the Rocephin and Zithromax should suffice. If the patient was started on the therapeutic anticoagulation, Lovenox should to be decreased to 40 mg subq for DVT prophylaxis. Risk and benefits of bronchoscopy was discussed with the patient. She was agreeable for the procedure. Continue oxygen supplementation, maintain saturation 92% or greater. Additional treatment changes need to be made for the patient based on progression of the illness. [place], [place] PROGRESS NOTE NAME: DEBORA GUTIERREZ UNIT #: [id number] ROOM: 410 DOCTOR: ALYSON GARIBAY MD BIRTHDATE: [birth year] ALYSON MISTRY MD CM:PNZAIN [id number] ALYSON COWAN MD 06/01/172239 interface
[~2017-05-30 16:18] MED LIST changes: +CARAFATE1 G1 PO; +IMDUR SA30 MG PO; +LOPRESSOR25 MG PO
[2017-05-30 16:39] LABS: BASO % 0.2 % (0.0-1.0); EOS # 0.3 10*3/uL (0.0-0.4); EOS % 1.6 % (1.0-4.0); HEMATOCRIT 38.1 % (37.0-47.0); HEMOGLOBIN 12.6 g/dl (12.0-16.0); LYMPH # 2.8 10*3/uL (1.3-4.4); MEAN CORPUSCULAR HGB 28.4 pg (27.0-31.0); MEAN CORPUSCULAR HGB CONC 33.1 g/dl (33.0-37.0); MEAN PLATELET VOLUME 9.8 fl (9.6-12.3); MONO # 1.2 10*3/uL (0.1-1.0); MONO % 7.5 % (3.0-9.0); NEUT # 11.1 10*3/uL (2.3-7.9); NEUT % 72.1 % (47.0-73.0); PLATELET COUNT AUTOMATED 188 10*3/uL (130-400); RED BLOOD COUNT 4.43 10*6/uL (4.10-5.10); RED CELL DISTRI WIDTH 13.8 % (0-14.5); WHITE BLOOD COUNT 15.4 10*3/uL (4.8-10.8)
[2017-05-30 16:50] LABS: ACT PARTIAL THROMBO TIME 22.2 SECONDS (20.8-31.5); INTERNATIONAL NORM RATIO 0.9 (2.0-3.5)
[2017-05-30 16:56] LABS: ALBUMIN 3.4 gm/dl (3.1-4.5); ALKALINE PHOSPHATASE 129 U/L (45-117); BUN 9 mg/dl (7-24); CHLORIDE 104 mmol/L (98-107); CREATININE 0.87 mg/dL (0.55-1.02); MAGNESIUM 2.1 mg/dL (1.5-2.1); POTASSIUM 3.8 mmol/L (3.5-5.1); SGOT/AST 15 IU/L (3-35); SGPT/ALT 19 U/L (12-78); SODIUM 137 mmol/L (136-145)
[2017-05-30 16:57] LABS: TROPONIN I < 0.015 ng/ml (<0.045)
[2017-05-30 17:00] VITALS: BP 114/54
[2017-05-30 17:30] VITALS: BP 118/54
--- NOTE | 2017-05-30 17:53 | NUR ---
PT MEDICATED WITH MORPHINE FOR PAIN PER DOCTORS ORDERS. WILL CONTINUE TO MONITOR.
[2017-05-30 18:00] VITALS: BP 133/65
--- NOTE | 2017-05-30 18:24 | NUR ---
A 51, admitted to , under the services of ALYSON Santoyo DO with a diagnosis of CHEST PAIN WITH HIGH RISK FOR CARDIAC ETIOLOGY, COPD EXACERBATION. Chief complaint is CHEST HEAVINESS, LEFT SIDED TO BACK. APPREAS SOB, MOIST COUGH. Patient arrived via stretcher from ER. Monitor applied. Initial assessment completed. Vital signs taken and recorded. ALYSON SANTOYO DO notified of admission to the unit. Orders received. See assessment for past medical history, medications and allergies. Patient and/or family oriented to unit. [address] visitation policy reviewed. Clothing/patient valuable form completed. CORNELIA WEEKS
[2017-05-30 18:36] VITALS: BP 146/61
--- NOTE | 2017-05-30 18:56 | NUR ---
MEDS VERIFIED WITH PATIENT. PHARMACY IS CLOSED AND UNABLE TO VERIFY. DR WATERS IS AWARE.
--- NOTE | 2017-05-30 19:25 | NUR ---
DR GIORDANO NOTIFIED THAT LA WAS ELEVATED
--- NOTE | 2017-05-30 19:30 | NUR ---
ASSUMED CARE OF PT AT THIS TIME
[2017-05-30 20:00] VITALS: BP 127/63
--- NOTE | 2017-05-30 20:30 | NUR ---
PT C/O INCREASED SOB AND INCREASED CHEST PAIN, CALL PLACED TO MD LOU STATES THAT HE WILL SEE PT
--- NOTE | 2017-05-30 20:35 | NUR ---
DR. WATERS IN TO SEE PT, NEW ORDERS RECEIVED AT THIS TIME, MEDICATIONS ADMSINSTERED ORDERED WILL MONITOR EFFECTS
--- NOTE | 2017-05-30 21:30 | NUR ---
PT REPORTS THAT 1 X DOSE OF ATIVAN EFFECTIVE AT THIS TIME, REPORTS DECREASED DECREASED SOB AND DECREASED CHEST PAIN
[2017-05-30 21:42] LABS: ABG BASE EXCESS -3.1 mmol/L (-2.0-2.0); ABG HCO3 20.1 mmol/l (22-26); ABG O2 SATURATION 93.5 % (95-97); ARTERIAL BLOOD GAS PCO2 31.1 mmHg (35-45); ARTERIAL BLOOD GAS PH 7.424 (7.35-7.45); ARTERIAL BLOOD GAS PO2 68.1 mmHg (80-90)
--- NOTE | 2017-05-30 21:52 | NUR ---
LAB CALLED WITH CRITICAL LAB RESULT OF LACTIC ACID OF 3.9, DR WATERS NOTIFED NO CHANGES AT THIS TIME
[2017-05-31] VITALS: BP 120/58
[2017-05-31 05:56] LABS: MEAN CELL VOLUME 86.7 fl (81.0-99.0); MEAN CORPUSCULAR HGB 29.1 pg (27.0-31.0); MEAN CORPUSCULAR HGB CONC 33.6 g/dl (33.0-37.0); MEAN PLATELET VOLUME 9.8 fl (9.6-12.3); PLATELET COUNT AUTOMATED 242 10*3/uL (130-400); RED BLOOD COUNT 3.54 10*6/uL (4.10-5.10); WHITE BLOOD COUNT 14.7 10*3/uL (4.8-10.8)
[2017-05-31 05:59] LABS: HEMATOCRIT 30.7 % (37.0-47.0); HEMOGLOBIN 10.3 g/dl (12.0-16.0)
--- NOTE | 2017-05-31 06:00 | NUR ---
CALL PLACED TO R/T LACTIC ACID 3.4, NO NEW ORDERS AT THIS TIME. PT ALSO HAS HARSH COUGH AND REQUESTED ROBITUSSIN, STATES THAT SHES GETTING MUCINEX AND TO TRY THIS FOR NOW
[2017-05-31 06:13] LABS: BUN 11 mg/dl (7-24); CHLORIDE 109 mmol/L (98-107); CHOLESTEROL 167 mg/dL (<200); CREATININE 1.04 mg/dL (0.55-1.02); HDL CHOLESTEROL 42 mg/dl (40-60); LDL CHOLESTEROL 115 mg/dL (9-159); PHOSPHOROUS 1.2 mg/dL (2.5-4.9); POTASSIUM 3.5 mmol/L (3.5-5.1); SODIUM 140 mmol/L (136-145); TRIGLYCERIDES 49 mg/dl (<150); VLDL CHOLESTEROL 10 mg/dL (6-40)
[2017-05-31 06:20] LABS: THYROID STIM HORMONE (HS) 0.092 uIU/ml (0.358-4.75)
--- NOTE | 2017-05-31 06:25 | NUR ---
CALL PLACED TO FOR CONSULT
[2017-05-31 06:34] LABS: TOTAL CELLS COUNTED 100 #CELLS
[2017-05-31 06:35] LABS: PLATELET SUFFICIENCY NORMAL (NORMAL); POLYCHROMASIA SLIGHT; TOXIC GRANULATION SLIGHT
[2017-05-31 08:00] VITALS: BP 129/60
--- NOTE | 2017-05-31 08:04 | NUR ---
OXY GIVEN FOR C/O PAIN TO RIBS FROM COUGHING OF 10/10. PT COUGH VERY HARSH. WILL CONT TO MONITOR. CALL LIGHT IN REACH.
--- NOTE | 2017-05-31 08:16 | NUR ---
DR SHIELDS NOTIFIED OF LACTIC ACID. NO NEW ORDERS. ALSO THAT PT REQUESTS SOMETHING FOR HER COUGH.
--- NOTE | 2017-05-31 09:00 | NUR ---
Student Success Counselor in to talk to patient. Patient states lives at home with . There are few steps in the home. [facility] Home health services: none Patient's level of ADLs: INDEPENDENT Patient has working utilities: all working DME: nebulizer, cane Follow-up physician's appointment after d/c: will be made by hospitalist nurse director upon discharge Does patient want to access PORTAL?: no Discharge plan discussed with patient, patient lives at home with , she is independent in adls and ambulation, has a neublizer and a cane, patient states she will be going back home when able and denies any home needs. NICOLE BRASHER
--- NOTE | 2017-05-31 10:10 | NUR ---
NOTIFIED DR SHIELDS LACTIC ACID 4.9
--- NOTE | 2017-05-31 11:38 | NUR ---
IV MORPHINE GIVEN FOR C/O RIB PAIN AND IV ATIVAN GIVEN FOR C/O ANXIETY. WILL CONT TO MONITOR. CALL LIGHT IN REACH.
--- NOTE | 2017-05-31 11:39 | NUR ---
MULTIPLE ATTEMPTS TO START IV IN AC MADE FOR CTA INCLUDING ICU NURSES. NO SUCCESS. DR SHIELDS NOTIFIED AND SHE ASKED IF SOMEONE FROM SURGERY CAN TRY. CURRENTLY TWO SURGERY NURSES ON FLOOR ATTEMPTING TO START IV WITH DOPPLER.
[2017-05-31 12:00] VITALS: BP 128/64
--- NOTE | 2017-05-31 12:38 | NUR ---
IV MORPHINE AND ATIVAN EFF AT THIS TIME. WILL CONT TO MONITOR. CALL LIGHT IN REACH.
[2017-05-31 13:11] LABS: BILIRUBIN NEGATIVE (NEGATIVE); BLOOD NEGATIVE (NEGATIVE); CLARITY CLEAR (CLEAR); COLOR YELLOW (YELLOW); GLUCOSE 1+ (NEGATIVE); KETONE NEGATIVE (NEGATIVE); LEUKO ESTERASE NEGATIVE (NEGATIVE); NITRITE NEGATIVE (NEGATIVE); PH 5.5 (5.0-9.0); UROBILINOGEN 0.2 E.U./dl (0.2-1.0)
[2017-05-31 13:28] LABS: BACTERIA TRACE; RBC 0-2 rbc/hpf (0-2); YEAST TRACE
--- NOTE | 2017-05-31 14:02 | NUR ---
pt has several areas to BLE in various stages of healing. Pt stated when she was in [facility] they treated her for scabies she also stated that a physician stated they were diabetic ulcers to her BLE. Patient requesting treatment. Wound Care Recommendation would be aqauphor to BLE daily. No drainage noted to any areas to BLE. No redness noted to surrounding areas.
--- NOTE | 2017-05-31 14:44 | NUR ---
DR SHIELDS NOTIFIED OF POSITIVE BLOOD CULTURES.
[2017-05-31 16:00] VITALS: BP 117/53
--- NOTE | 2017-05-31 17:17 | NUR ---
PT GIVEN MORPHINE FOR C/O RIB PAIN OF 10/10. WILL CONT TO MONITOR. CALL LIGHT IN REACH.
[2017-05-31] MEDS ORDERED: CARAFATE1 G1 PO (17:48)
[2017-05-31] MEDS ORDERED: PROAIR HFA8.5 GM INH (17:55)
--- NOTE | 2017-05-31 17:56 | NUR ---
med rec updated by calling [facility] and verifying with patient.
--- NOTE | 2017-05-31 18:11 | NUR ---
DR GARCIA NOTIFIED LACTIC ACID 2.2
--- NOTE | 2017-05-31 18:26 | NUR ---
PT C/O NEW ONSET CHEST PRESSURE WITH PAIN SHOOTING UP LEFT SIDE OF JAW. STAT EKG ORDERED AND DR GARCIA NOTFIED.
[2017-05-31 18:35] VITALS: BP 162/80
--- NOTE | 2017-05-31 18:49 | NUR ---
ANSWERING SERVICE WAS NOTIFIED OF DR. UMANA CONSULT. RESPONSE OF NOTIFICATION WAS OK I WILL HAVE HIM CALL YOU. ROCHELLE MAURER
--- NOTE | 2017-05-31 19:07 | NUR ---
SPOKE TO DR GARCIA REGARDING ATIVAN AND SOLUMEDROL. HE STATED NOT TO WORRY ABOUT GIVING IM SOLUMEDROL SINCE SHE IS ALREADY RECEIVING IT VIA IV. ALSO TO GIVE A PT ANOTHER 0.5MG OF ATIVAN TO EQUAL 1MG.
--- NOTE | 2017-05-31 19:07 | NUR ---
SPOKE TO DR UMANA AND HE STATED HE WILL SEE HER TOMORROW.
[2017-05-31 19:15] LABS: CKMB 0.9 ng/ml (0.5-3.6); CPK 60 U/L (26-192)
[2017-05-31 19:22] LABS: TROPONIN I < 0.015 ng/ml (<0.045)
--- NOTE | 2017-05-31 19:30 | NUR ---
ASSUMED CARE OF PT AT THIS TIME, RESPS EASY AND NONLABORED WITH NO S/S OF DISTRESS CALL LIGHT WITH IN REACH
[2017-05-31 19:33] LABS: ABG BASE EXCESS -3.8 mmol/L (-2.0-2.0); ABG HCO3 19.5 mmol/l (22-26); ABG O2 SATURATION 87.3 % (95-97); ARTERIAL BLOOD GAS PCO2 30.6 mmHg (35-45); ARTERIAL BLOOD GAS PH 7.418 (7.35-7.45); ARTERIAL BLOOD GAS PO2 50.6 mmHg (80-90)
[2017-05-31 20:00] VITALS: BP 119/60
--- NOTE | 2017-05-31 20:30 | NUR ---
CALLED FROM LAB LACTIC ACID 4.6, DR WATERS NOTIFIED WITH NO NEW ORDERS
--- NOTE | 2017-05-31 22:40 | NUR ---
CALL FROM LAB LACTIC ACID 3.7, CALL PLACED TO DR. WATERS NO NEW ORDERS AT THIS TIME
--- NOTE | 2017-05-31 23:05 | NUR ---
PT C/O CHEST PAIN AND REQUESTING PRN PAIN MEDICATION, ADMINSITERED IV MORPHINE PER ORDERS, WILL MONITOR EFFECTS
[2017-06-01] VITALS: BP 125/64
--- NOTE | 2017-06-01 00:05 | NUR ---
PT REPORTS THAT PRN PAIN MEDICATION IS EFFECTIVE AT THIS TIME, REPORTS DECREASED CHEST PAIN, CALL LIGHT WITH IN REACH
--- NOTE | 2017-06-01 02:01 | NUR ---
RESTING IN BED WITH EYES CLOSED, CALL LIGHT WITH IN REACH, NO S/S OF DISTRESS
--- NOTE | 2017-06-01 04:30 | NUR ---
PT REQUESTING PRN PAIN MEDICATION, ADMINISTERED MORPHINE IV PRN PER ORDERS, PT ALSO STATING THAT HER ANXIETY LEVEL IS INCREASING AND IS REQUESTING THAT SHE HAVE PRN ATIVAN, ADMINISTERED ATIVAN IV PER ORDERS, WILL MONITOR EFFECTS
[2017-06-01 06:09] LABS: ALBUMIN 2.8 gm/dl (3.1-4.5); ALKALINE PHOSPHATASE 90 U/L (45-117); BUN 10 mg/dl (7-24); CHLORIDE 110 mmol/L (98-107); CREATININE 0.95 mg/dL (0.55-1.02); FREE T4 1.32 ng/dl (0.76-1.46); PHOSPHOROUS 2.1 mg/dL (2.5-4.9); POTASSIUM 3.3 mmol/L (3.5-5.1); SGOT/AST 10 IU/L (3-35); SGPT/ALT 15 U/L (12-78); SODIUM 143 mmol/L (136-145); TOTAL PROTEIN 6.3 gm/dL (6.4-8.2)
--- NOTE | 2017-06-01 06:21 | NUR ---
PT RESTING IN BED , NO LONGER REPORTING PAIN AND REPORTS DECREASED ANXIETY AT THIS TIME, PRN MEDICATIONS EFFECTIVE.
[2017-06-01 06:29] LABS: HEMATOCRIT 29.8 % (37.0-47.0); HEMOGLOBIN 9.8 g/dl (12.0-16.0); MEAN CELL VOLUME 89.2 fl (81.0-99.0); MEAN CORPUSCULAR HGB 29.3 pg (27.0-31.0); MEAN CORPUSCULAR HGB CONC 32.9 g/dl (33.0-37.0); MEAN PLATELET VOLUME 10.1 fl (9.6-12.3); PLATELET COUNT AUTOMATED 252 10*3/uL (130-400); RED BLOOD COUNT 3.34 10*6/uL (4.10-5.10); RED CELL DISTRI WIDTH 14.5 % (0-14.5); WHITE BLOOD COUNT 18.7 10*3/uL (4.8-10.8)
[2017-06-01 07:01] LABS: TOTAL CELLS COUNTED 100 #CELLS
[2017-06-01 07:02] LABS: OVALOCYTES FEW; PLATELET SUFFICIENCY NORMAL (NORMAL)
[2017-06-01 08:00] VITALS: BP 115/56
--- NOTE | 2017-06-01 08:03 | NUR ---
PATIENT C/O CHEST AND BACK PAIN DUE TO HARSH COUGHING. RATE 9/10 ON PAIN SCALE. MEDICATED WITH OXYCODONE 5MG PO PER PRN ORDER. WILL CONTINUE TO MONITOR.
--- NOTE | 2017-06-01 09:28 | NUR ---
case management visits with patient, patient states she is having a bronch tomorrow, patient unsure what she may need at home, case management will follow for any needs
--- NOTE | 2017-06-01 10:53 | NUR ---
CALLED REGARDING RECOMMENDATION TO CHANGE LOVENOX TO 40 DAILY. STATED OKAY THAT HE WOULD CHANGE IT.
[2017-06-01 12:00] VITALS: BP 109/64
--- NOTE | 2017-06-01 14:17 | NUR ---
PATIENT C/O CHEST AND BACK PAIN DUE TO HARSH COUGH. MEDICATED WITH MORPHINE SULFATE 2MG IV PER PRN ORDER. WILL CONTINUE TO MONITOR.
[2017-06-01 16:00] VITALS: BP 144/76
--- NOTE | 2017-06-01 16:23 | NUR ---
Pt given PRN PO Roxycodone, Rates chest pain r/t coughing @ 10/10. Will monitor effectiveness.
--- NOTE | 2017-06-01 18:40 | NUR ---
Medicated for pain/anxiety as ordered/requested. Verbalized relief. Resp easy and regular - moderate amount of coughing noted. Watching the tv. No acute distress noted @ this time.
[2017-06-01 20:00] VITALS: BP 139/64
--- NOTE | 2017-06-01 22:30 | NUR ---
MEDICATED WITH MORPHINE PER PRN ORDER FOR C/O PAIN.
[2017-06-02] VITALS (9 sets, daily range): BP systolic 116–156; BP diastolic 57–89
--- NOTE | 2017-06-02 03:53 | NUR ---
SPOKE WITH LIZ. UNABLE TO OBTAIN VANC AT THIS TIME, WILL PASS OFF IN REPORT THAT VANC STILL NEEDS TO BE GIVEN IF UNABLE TO OBTAIN PRIOR TO LEAVING.
[2017-06-02 06:50] LABS: HEMOGLOBIN 10.1 g/dl (12.0-16.0); MEAN CELL VOLUME 86.2 fl (81.0-99.0); MEAN CORPUSCULAR HGB CONC 33.7 g/dl (33.0-37.0); MEAN PLATELET VOLUME 9.7 fl (9.6-12.3); PLATELET COUNT AUTOMATED 264 10*3/uL (130-400); RED BLOOD COUNT 3.48 10*6/uL (4.10-5.10); RED CELL DISTRI WIDTH 14.6 % (0-14.5); WHITE BLOOD COUNT 17.2 10*3/uL (4.8-10.8)
[2017-06-02 07:14] LABS: BUN 8 mg/dl (7-24); CHLORIDE 107 mmol/L (98-107); CREATININE 0.87 mg/dL (0.55-1.02); POTASSIUM 3.2 mmol/L (3.5-5.1); SGOT/AST 11 IU/L (3-35); SGPT/ALT 18 U/L (12-78); SODIUM 142 mmol/L (136-145); TOTAL PROTEIN 6.8 gm/dL (6.4-8.2)
[2017-06-02 07:17] LABS: ALKALINE PHOSPHATASE 89 U/L (45-117)
[2017-06-02 07:26] LABS: PLATELET SUFFICIENCY NORMAL (NORMAL); TOTAL CELLS COUNTED 100 #CELLS
--- NOTE | 2017-06-02 08:14 | NUR ---
PT OFF OF FLOOR FOR BRONCHOSCOPY PROCEDURE.
--- NOTE | 2017-06-02 09:00 | NUR ---
case management attempted to visit with patient, patient out of room for procedure
--- NOTE | 2017-06-02 10:15 | NUR ---
PT RETURNS TO FLOOR FROM BRONCHOSCOPY PROCEDURE.
--- NOTE | 2017-06-02 10:19 | NUR ---
SPOKE WITH DR. SHIELDS DUE TO PT REQUESTING MEDICATION FOR NAUSEA. NEW ORDERS RECEIVED.
--- NOTE | 2017-06-02 10:35 | NUR ---
MORPHINE 2 MG GIVEN VIA IV DUE C/O PAIN. PT RATES PAIN 7/10, LOCATED IN CHEST DUE TO COUGHING. WILL MONITOR FOR EFFECTIVENESS. CALL LIGHT IN REACH.
--- NOTE | 2017-06-02 11:35 | NUR ---
MORPHINE EFFECTIVE. PT RESTING PEACEFULLY. CALL LIGHT IN REACH.
--- NOTE | 2017-06-02 13:58 | NUR ---
RECEIVED BLOOD CULTURE RESULTS FROM LAB. PHYSICIAN NOTIFIED OF RESULTS.
--- NOTE | 2017-06-02 14:49 | NUR ---
PT C/O CHEST PAIN R/T COUGHING. RATES IT 8 OUT 10. MORPHINE 2 MG GIVEN VIA IV. WILL MONITOR FOR EFFECTIVENESS. CALL LIGHT IN REACH.
--- NOTE | 2017-06-02 15:49 | NUR ---
MORPHINE EFFECTIVE. PT RESTING IN BED. CALL LIGHT IN REACH.
--- NOTE | 2017-06-02 16:00 | NUR ---
RESTING COMFORTABLY, DENIES C/O CHEST PAIN AT PRESENT TIME. EASY RESPIRATIONS WITH SKIN W/D. PERSISTANT HACKY COUGH NOTED. ENCOURAGED TO USE FLUTTER, PT VOICES UNDERSTANDING. SEE SHIFT ASSESSMENT.
--- NOTE | 2017-06-02 18:11 | NUR ---
MEDICATED PO ORDERED PER PT REQUEST WITH OXY IR FOR C/O MID CHEST & BACK PAIN. PT RATES PAIN 05/01. SEE EMAR. CHEST PAIN IS NON-RADIATING & APPEARS TO BE ASSOCIATED WITH COUGH.
--- NOTE | 2017-06-02 19:12 | NUR ---
PT STATES MEDICATION EFFECTIVE IN RELIEVING DISCOMFORT.
--- NOTE | 2017-06-02 19:50 | NUR ---
SPOKE WITH DR AMADO REGARDING PT C/O NAUSEA & REQUEST FOR COUGH MEDICATION.
--- NOTE | 2017-06-02 19:50 | NUR ---
PT. AWAKE, ALERT AND ORIENTED AT THIS TIME. PT. C/O CHEST PAIN R/T COUGH. CALL LIGHT WITHIN REACH, BED IN LOWEST POSITION, WHEELS LOCKED. SEE SHIFT ASSESSMENT.
--- NOTE | 2017-06-02 20:45 | NUR ---
PT. REQUESTED MORPHINE FOR PAIN, AND ATIVAN FOR ANXIOUS FEELING. WILL MONITOR FOR EFFECTIVENESS.
--- NOTE | 2017-06-02 21:15 | NUR ---
PT. STATED SHE IS PAIN FREE AT THIS TIME.
[2017-06-03] VITALS: BP 115/72
--- NOTE | 2017-06-03 02:00 | NUR ---
MORPHINE GIVEN AT THIS TIME FOR CHEST PAIN R/T PERSISTENT COUGH. WILL ASSESS FOR EFFECTIVENESS.
--- NOTE | 2017-06-03 02:30 | NUR ---
PT. SLEEPING AT THIS TIME, RESPIRATIONS UNLABORED.
--- NOTE | 2017-06-03 03:16 | NUR ---
24 HR CHART CHECK COMPLETE
--- NOTE | 2017-06-03 05:27 | NUR ---
PT. REQUESTED PAIN MEDICINE AT THIS TIME. GIVEN OXY, WILL RE-ASSESS FOR EFFECTIVENESS.
--- NOTE | 2017-06-03 05:57 | NUR ---
PT. STATED RELIEF OF PAIN AT THIS TIME.
[2017-06-03 06:53] LABS: HEMATOCRIT 31.5 % (37.0-47.0); HEMOGLOBIN 10.7 g/dl (12.0-16.0); MEAN CELL VOLUME 86.5 fl (81.0-99.0); MEAN CORPUSCULAR HGB 29.4 pg (27.0-31.0); MEAN PLATELET VOLUME 9.6 fl (9.6-12.3); PLATELET COUNT AUTOMATED 232 10*3/uL (130-400); RED BLOOD COUNT 3.64 10*6/uL (4.10-5.10); RED CELL DISTRI WIDTH 14.6 % (0-14.5)
[2017-06-03 07:08] LABS: ALKALINE PHOSPHATASE 90 U/L (45-117); BUN 8 mg/dl (7-24); CHLORIDE 106 mmol/L (98-107); CREATININE 0.98 mg/dL (0.55-1.02); MAGNESIUM 2.1 mg/dL (1.5-2.1); POTASSIUM 3.3 mmol/L (3.5-5.1); SGOT/AST 7 IU/L (3-35); SGPT/ALT 20 U/L (12-78); SODIUM 140 mmol/L (136-145); TOTAL PROTEIN 6.6 gm/dL (6.4-8.2)
[2017-06-03 07:36] LABS: PLATELET SUFFICIENCY NORMAL (NORMAL); TOTAL CELLS COUNTED 100 #CELLS; TOXIC GRANULATION SLIGHT
[2017-06-03 08:00] VITALS: BP 123/75
--- NOTE | 2017-06-03 08:53 | NUR ---
MEDICATED IV SLOWLY ORDERED PER PT REQUEST WITH ATIVAN FOR INCREASED ANXIETY, MORPHINE FOR C/O BACK PAIN. PT RATES PAIN 05/01. SEE EMAR.
--- NOTE | 2017-06-03 08:56 | NUR ---
DR SHIELDS IN TO SEE PT & COUGH MEDS REQUESTED ONCE AGAIN.
--- NOTE | 2017-06-03 09:30 | NUR ---
case management visits with patient, patient denies any home needs
[2017-06-03 12:00] VITALS: BP 100/58
--- NOTE | 2017-06-03 12:57 | NUR ---
MEDICATED PO ORDERED PER PT REQUEST WITH OXY IR FOR C/O BACK & CHEST PAIN. PT RATES PAIN 03/31. SEE EMAR.
--- NOTE | 2017-06-03 14:00 | NUR ---
pt states medication effective in relieving discomfort. encouraged ambulation & flutter.
[2017-06-03 16:00] VITALS: BP 124/67
[2017-06-03 16:08] LABS: ACID FAST SMEAR Negative (.); ACID FAST SPEC PROCESSING Concentration (.)
--- NOTE | 2017-06-03 16:19 | NUR ---
medicated iv slowly as ordered per pt request with morphine for c/o back pain. pt rates pain 03/31. see emar.
--- NOTE | 2017-06-03 17:15 | NUR ---
MEDICATION EFFECTIVE PER PT IN RELIEVING DISCOMFORT.
--- NOTE | 2017-06-03 19:00 | NUR ---
PT NAUSEATED, EMESIS OF SMALL AMT CLEAR SPUTUM AFTER HARSH HACKING COUGH. MEDICATED IV SLOWLY ORDERED PER PT REQUEST WITH PHENERGAN. SEE EMAR.
--- NOTE | 2017-06-03 19:16 | NUR ---
PT STATES PHENERGAN WAS EFFECTIVE FOR NAUSEA.
--- NOTE | 2017-06-03 19:39 | NUR ---
24 HOUR CHART CHECK COMPLETED.
[2017-06-03 20:00] VITALS: BP 120/69
--- NOTE | 2017-06-03 20:15 | NUR ---
PT STATES MORPHINE FOR "PAIN IN RIBS FROM COUGHING 02/28" AND ATIVAN FOR RELAXATION AT 2000 EFFECTIVE PER PT.
[2017-06-04] VITALS: BP 118/73
--- NOTE | 2017-06-04 | NUR ---
MEDICATED WITH MS 2MG SLOW IV PUSH FOR C/O CHEST/BACK PAIN RATED A 9/10 DUE TO COUGHING. WILL MONITOR FOR EFFECTIVENESS.
--- NOTE | 2017-06-04 02:00 | NUR ---
MEDICATED WITH PHENERGAN FOR C/O NAUSEA.
--- NOTE | 2017-06-04 02:00 | NUR ---
RESTING IN ROOM; VOICES NO FURTHER C/O AT THIS TIME. PAIN MEDICATION GIVEN EARLIER APPARENTLY EFFECTIVE.
--- NOTE | 2017-06-04 04:00 | NUR ---
VOICES NO FURTHER C/O NAUSEA AT THIS TIME. PHENERGAN EFFECTIVE.
--- NOTE | 2017-06-04 05:00 | NUR ---
MEDICATED WITH ATIVAN SLOW IV PUSH FOR C/O ANXIETY.
--- NOTE | 2017-06-04 06:15 | NUR ---
RESTING IN BED WITH EYES CLOSED. ATIVAN GIVEN EARLIER APPARENTLY EFFECTIVE.
[2017-06-04 06:29] LABS: HEMATOCRIT 31.6 % (37.0-47.0); HEMOGLOBIN 10.8 g/dl (12.0-16.0); MEAN CELL VOLUME 86.3 fl (81.0-99.0); MEAN CORPUSCULAR HGB 29.5 pg (27.0-31.0); MEAN CORPUSCULAR HGB CONC 34.2 g/dl (33.0-37.0); MEAN PLATELET VOLUME 10.2 fl (9.6-12.3); PLATELET COUNT AUTOMATED 264 10*3/uL (130-400); RED BLOOD COUNT 3.66 10*6/uL (4.10-5.10); RED CELL DISTRI WIDTH 14.3 % (0-14.5); WHITE BLOOD COUNT 12.7 10*3/uL (4.8-10.8)
[2017-06-04 06:52] LABS: BUN 15 mg/dl (7-24); CHLORIDE 105 mmol/L (98-107); POTASSIUM 3.7 mmol/L (3.5-5.1); SGOT/AST 16 IU/L (3-35); SGPT/ALT 17 U/L (12-78); SODIUM 140 mmol/L (136-145)
[2017-06-04 06:55] LABS: ALKALINE PHOSPHATASE 96 U/L (45-117); TOTAL PROTEIN 6.5 gm/dL (6.4-8.2)
[2017-06-04 07:14] LABS: PLATELET SUFFICIENCY NORMAL (NORMAL); TOTAL CELLS COUNTED 100 #CELLS
[2017-06-04 07:15] LABS: POLYCHROMASIA SLIGHT; VACUOLATION OF NEUTROPHILS SLIGHT
[2017-06-04 07:16] LABS: TOXIC GRANULATION SLIGHT
[2017-06-04 08:00] VITALS: BP 117/59
--- NOTE | 2017-06-04 08:08 | NUR ---
MORPHINE GIVEN FOR C/O CHEST/BACK PAIN. RATES 10/10 ON PAIN SCALE. WILL MONITOR.
[2017-06-04] MEDS ORDERED: MUCINEX ER600 MG PO (08:38)
[2017-06-04] MEDS ORDERED: LEVAQUIN750 M1 PO (08:39)
--- NOTE | 2017-06-04 09:00 | NUR ---
MORPHINE HELPING PER PT.
[2017-06-04] MEDS ORDERED: PREDNISONE50 MG PO (09:18)
--- NOTE | 2017-06-04 09:58 | NUR ---
OXY-IR GIVEN FOR C/O CHEST/BACK PAIN. RATES 8/10 ON PAIN SCALE. WILL MONITOR.
--- NOTE | 2017-06-04 10:00 | NUR ---
PHENERGAN GIVEN FOR C/O NAUSEA/VOMITING. WILL MONITOR.
--- NOTE | 2017-06-04 11:00 | NUR ---
PHENERGAN EFFECTIVE PER PT.
--- NOTE | 2017-06-04 11:41 | NUR ---
pt was walked for a 6 minute eval of home o2. walk started in sitting position on edge of be at room air 1128- RA 100% SPO2, HR-66, BP-139/75. PT WALKED TO THE DOORWAY, CONTINUED AROUND THE 4TH FLOOR ON ROOM AIR, NEVER DROPPING BELOW 96%. PT WENT BACK TO HER ROOM, STILL ON ROOM AIR AND SAT AT THE EDGE OF HER BED AND VITALS WERE TAKEN AGAIN 1136- RA 97%O2, HR-88, BP-131/71 PT DOES NOT QUALIFY FOR HOME O2
[2017-06-04 12:00] VITALS: BP 139/75
--- NOTE | 2017-06-04 13:28 | NUR ---
MORPHINE GIVEN FOR C/O CHEST/BACK PAIN. WILL MONITOR.
--- NOTE | 2017-06-04 14:30 | NUR ---
MORPHINE EFFECTIVE PER PT.
--- NOTE | 2017-06-04 15:26 | NUR ---
MSDIS Discharge instructions reviewed with patient/family. Patient receptive and verbalizes understanding. Follow-up care arranged. Written instructions given to patient/family. MICHELA COHN
== END 2017-06-04 15:26 | disposition home or self-care (01) | DRG 871 ==
LOC: ED 16:18 → 4E 17:52
PROVIDERS: Emergency Medicine; Hospitalist; Internal Medicine; Internal Medicine Critical Care Medicine; Internal Medicine Nephrology; Student in an Organized Health Care Education/Training Program; ADMIT Emergency Medicine
DX: A41.89 Other specified sepsis (principal); J18.9 Pneumonia, unspecified organism; J96.01 Acute respiratory failure with hypoxia; T17.890A Other foreign object in other parts of respiratory tract causing asphyxiation, initial encounter; K50.919 Crohn's disease, unspecified, with unspecified complications; J44.0 Chronic obstructive pulmonary disease with (acute) lower respiratory infection; E87.8 Other disorders of electrolyte and fluid balance, not elsewhere classified; I50.9 Heart failure, unspecified; E44.1 Mild protein-calorie malnutrition; J44.1 Chronic obstructive pulmonary disease with (acute) exacerbation; R65.20 Severe sepsis without septic shock; E87.6 Hypokalemia; E78.5 Hyperlipidemia, unspecified; K21.9 Gastro-esophageal reflux disease without esophagitis; E83.39 Other disorders of phosphorus metabolism; I45.10 Unspecified right bundle-branch block; E66.9 Obesity, unspecified; Z82.3 Family history of stroke; Z82.49 Family history of ischemic heart disease and other diseases of the circulatory system; Z90.49 Acquired absence of other specified parts of digestive tract; Z80.0 Family history of malignant neoplasm of digestive organs; Z90.721 Acquired absence of ovaries, unilateral; Z82.0 Family history of epilepsy and other diseases of the nervous system; Z90.710 Acquired absence of both cervix and uterus; Z79.899 Other long term (current) drug therapy; Z79.82 Long term (current) use of aspirin; Z88.6 Allergy status to analgesic agent; Z88.8 Allergy status to other drugs, medicaments and biological substances; Z88.5 Allergy status to narcotic agent; Z87.891 Personal history of nicotine dependence; X58.XXXA Exposure to other specified factors, initial encounter; Y93.89 Activity, other specified; Y92.89 Other specified places as the place of occurrence of the external cause; Y99.8 Other external cause status; Z68.31 Body mass index [BMI] 31.0-31.9, adult

== ENCOUNTER 2017-10-03 19:55 | Inpatient (IN) | payer MEDICAID ==
[~2017-10-03] VITALS: Ht 165.1 cm; Wt 91.8 kg
[~2017-10-03 19:55] MED LIST changes: +LEVAQUIN750 M1 PO; +MUCINEX ER600 MG PO; +PROAIR HFA8.5 GM INH
[2017-10-03 19:58] VITALS: BP 156/82
[2017-10-03 20:15] LABS: BASO % 0.4 % (0.0-1.0); EOS # 0.2 10*3/uL (0.0-0.4); EOS % 1.6 % (1.0-4.0); HEMATOCRIT 35.5 % (37.0-47.0); HEMOGLOBIN 12.2 g/dl (12.0-16.0); LYMPH # 2.7 10*3/uL (1.3-4.4); LYMPH % 24.4 % (27.0-41.0); MEAN CELL VOLUME 85.3 fl (81.0-99.0); MEAN CORPUSCULAR HGB 29.3 pg (27.0-31.0); MEAN CORPUSCULAR HGB CONC 34.4 g/dl (33.0-37.0); MEAN PLATELET VOLUME 9.8 fl (9.6-12.3); MONO # 0.8 10*3/uL (0.1-1.0); MONO % 7.3 % (3.0-9.0); NEUT # 7.2 10*3/uL (2.3-7.9); NEUT % 66.1 % (47.0-73.0); PLATELET COUNT AUTOMATED 261 10*3/uL (130-400); RED BLOOD COUNT 4.16 10*6/uL (4.10-5.10); RED CELL DISTRI WIDTH 13.2 % (0-14.5); WHITE BLOOD COUNT 10.9 10*3/uL (4.8-10.8)
[2017-10-03 20:26] LABS: ACT PARTIAL THROMBO TIME 25.7 SECONDS (20.8-31.5); INTERNATIONAL NORM RATIO 0.9 (2.0-3.5)
[2017-10-03 20:32] LABS: ALBUMIN 3.7 gm/dl (3.1-4.5); ALKALINE PHOSPHATASE 112 U/L (45-117); BUN 12 mg/dl (7-24); CHLORIDE 105 mmol/L (98-107); CREATININE 1.02 mg/dL (0.55-1.02); POTASSIUM 3.5 mmol/L (3.5-5.1); SGOT/AST 15 IU/L (3-35); SGPT/ALT 16 U/L (12-78); SODIUM 139 mmol/L (136-145); TOTAL PROTEIN 7.4 gm/dL (6.4-8.2)
[2017-10-03 20:40] LABS: TROPONIN I < 0.015 ng/ml (<0.045)
[2017-10-03 21:00] VITALS: BP 133/71
[2017-10-03 21:32] VITALS: BP 134/75
[2017-10-03 22:18] VITALS: BP 125/75
[2017-10-03 22:30] VITALS: BP 117/69
[2017-10-03] MEDS ORDERED: PHENERGAN25 M3 PO (23:10)
[2017-10-04] VITALS: BP 104/51
[2017-10-04 02:29] LABS: BASO % 0.4 % (0.0-1.0); EOS # 0.1 10*3/uL (0.0-0.4); EOS % 1.5 % (1.0-4.0); HEMATOCRIT 32.7 % (37.0-47.0); HEMOGLOBIN 11.1 g/dl (12.0-16.0); LYMPH # 2.6 10*3/uL (1.3-4.4); LYMPH % 27.7 % (27.0-41.0); MEAN CELL VOLUME 86.1 fl (81.0-99.0); MEAN CORPUSCULAR HGB 29.2 pg (27.0-31.0); MEAN CORPUSCULAR HGB CONC 33.9 g/dl (33.0-37.0); MEAN PLATELET VOLUME 10.1 fl (9.6-12.3); MONO # 0.7 10*3/uL (0.1-1.0); MONO % 7.4 % (3.0-9.0); NEUT # 5.8 10*3/uL (2.3-7.9); NEUT % 62.7 % (47.0-73.0); PLATELET COUNT AUTOMATED 221 10*3/uL (130-400); RED CELL DISTRI WIDTH 13.3 % (0-14.5); WHITE BLOOD COUNT 9.3 10*3/uL (4.8-10.8)
[2017-10-04 02:40] LABS: BUN 12 mg/dl (7-24); CHLORIDE 107 mmol/L (98-107); CREATININE 0.91 mg/dL (0.55-1.02); POTASSIUM 3.6 mmol/L (3.5-5.1); SODIUM 142 mmol/L (136-145)
[2017-10-04 02:45] LABS: PHOSPHOROUS 4.3 mg/dL (2.5-4.9)
[2017-10-04 04:00] VITALS: BP 170/51
[2017-10-04 08:00] VITALS: BP 118/80
[2017-10-04 08:19] LABS: VITAMIN D, 25-HYDROXY 15.2 ng/mL (30-100)
[2017-10-04 12:00] VITALS: BP 90/56
[2017-10-04 16:00] VITALS: BP 110/48
[2017-10-04 20:00] VITALS: BP 111/60
[2017-10-05] VITALS: BP 96/41
[2017-10-05 08:00] VITALS: BP 90/56
[2017-10-05 09:15] VITALS: BP 127/62
[2017-10-05 12:00] VITALS: BP 111/62
[2017-10-05 16:00] VITALS: BP 126/66
[2017-10-05 20:37] VITALS: BP 116/53
[2017-10-06 00:25] VITALS: BP 118/62
[2017-10-06 08:00] VITALS: BP 110/70
[2017-10-06 08:30] LABS: BASO % 0.1 % (0.0-1.0); HEMATOCRIT 35.2 % (37.0-47.0); LYMPH # 1.1 10*3/uL (1.3-4.4); LYMPH % 8.2 % (27.0-41.0); MEAN CELL VOLUME 85.9 fl (81.0-99.0); MEAN CORPUSCULAR HGB 29.3 pg (27.0-31.0); MEAN CORPUSCULAR HGB CONC 34.1 g/dl (33.0-37.0); MEAN PLATELET VOLUME 9.6 fl (9.6-12.3); MONO # 0.4 10*3/uL (0.1-1.0); MONO % 2.8 % (3.0-9.0); NEUT # 11.5 10*3/uL (2.3-7.9); NEUT % 88.3 % (47.0-73.0); PLATELET COUNT AUTOMATED 261 10*3/uL (130-400)
[2017-10-06 08:44] LABS: ALBUMIN 3.3 gm/dl (3.1-4.5); ALKALINE PHOSPHATASE 100 U/L (45-117); BUN 13 mg/dl (7-24); CHLORIDE 105 mmol/L (98-107); CREATININE 1.06 mg/dL (0.55-1.02); POTASSIUM 3.8 mmol/L (3.5-5.1); SGOT/AST 10 IU/L (3-35); SGPT/ALT 18 U/L (12-78); SODIUM 141 mmol/L (136-145); TOTAL PROTEIN 6.9 gm/dL (6.4-8.2)
[2017-10-06 12:00] VITALS: BP 118/67
[2017-10-06 16:00] VITALS: BP 110/50
[2017-10-06 20:00] VITALS: BP 119/64
[2017-10-07] VITALS: BP 121/66
[2017-10-07 05:05] LABS: ALBUMIN 3.2 gm/dl (3.1-4.5); ALKALINE PHOSPHATASE 97 U/L (45-117); BUN 13 mg/dl (7-24); CHLORIDE 107 mmol/L (98-107); CREATININE 0.85 mg/dL (0.55-1.02); POTASSIUM 4.4 mmol/L (3.5-5.1); SGOT/AST 13 IU/L (3-35); SGPT/ALT 19 U/L (12-78); SODIUM 139 mmol/L (136-145)
[2017-10-07 05:48] LABS: BASO % 0.1 % (0.0-1.0); EOS % 0.3 % (1.0-4.0); HEMATOCRIT 34.7 % (37.0-47.0); LYMPH # 1.1 10*3/uL (1.3-4.4); LYMPH % 8.1 % (27.0-41.0); MEAN CELL VOLUME 85.3 fl (81.0-99.0); MEAN CORPUSCULAR HGB 29.5 pg (27.0-31.0); MEAN CORPUSCULAR HGB CONC 34.6 g/dl (33.0-37.0); MEAN PLATELET VOLUME 10.2 fl (9.6-12.3); MONO # 0.4 10*3/uL (0.1-1.0); MONO % 2.7 % (3.0-9.0); NEUT # 12.3 10*3/uL (2.3-7.9); NEUT % 87.6 % (47.0-73.0); NUCLEATED RED BLOOD CELL 0.3 % (0.0-0.0); PLATELET COUNT AUTOMATED 276 10*3/uL (130-400); RED BLOOD COUNT 4.07 10*6/uL (4.10-5.10); RED CELL DISTRI WIDTH 13.2 % (0-14.5); WHITE BLOOD COUNT 14.1 10*3/uL (4.8-10.8)
[2017-10-07 08:00] VITALS: BP 110/68
[2017-10-07 12:00] VITALS: BP 97/52
[2017-10-07] MEDS ORDERED: ATORVASTATIN CA40 M1 PO (13:30)
[2017-10-07] MEDS ORDERED: ROBITUSSIN DM 101 OZ PO (13:30)
[2017-10-07] MEDS ORDERED: PREDNISONE10 MG PO (14:31)
== END 2017-10-07 14:40 | disposition home or self-care (01) | DRG 191 ==
LOC: ED 19:55 → EDHOLD 21:40 → 4E 21:40
PROVIDERS: Family Medicine; Internal Medicine; Student in an Organized Health Care Education/Training Program
DX: J44.0 Chronic obstructive pulmonary disease with (acute) lower respiratory infection (principal); I50.32 Chronic diastolic (congestive) heart failure; K50.919 Crohn's disease, unspecified, with unspecified complications; M94.0 Chondrocostal junction syndrome [Tietze]; J20.6 Acute bronchitis due to rhinovirus; R73.9 Hyperglycemia, unspecified; D72.829 Elevated white blood cell count, unspecified; D72.810 Lymphocytopenia; E78.5 Hyperlipidemia, unspecified; K21.9 Gastro-esophageal reflux disease without esophagitis; M54.31 Sciatica, right side; Z90.710 Acquired absence of both cervix and uterus; Z90.49 Acquired absence of other specified parts of digestive tract; Z87.891 Personal history of nicotine dependence; Z80.0 Family history of malignant neoplasm of digestive organs; Z82.0 Family history of epilepsy and other diseases of the nervous system; Z88.6 Allergy status to analgesic agent; Z88.8 Allergy status to other drugs, medicaments and biological substances; Z79.51 Long term (current) use of inhaled steroids; Z79.82 Long term (current) use of aspirin; Z79.899 Other long term (current) drug therapy

== ENCOUNTER 2017-12-09 21:24 | Emergency (ER) | payer MEDICAID ==
[~2017-12-09] VITALS: Ht 165.1 cm; Wt 93.4 kg
[~2017-12-09 21:24] MED LIST changes: +ROBITUSSIN DM 101 OZ PO
[2017-12-09 22:16] LABS: BASO % 0.3 % (0.0-1.0); EOS # 0.3 10*3/uL (0.0-0.4); EOS % 2.4 % (1.0-4.0); HEMATOCRIT 36.1 % (37.0-47.0); HEMOGLOBIN 12.3 g/dl (12.0-16.0); LYMPH # 2.4 10*3/uL (1.3-4.4); LYMPH % 19.1 % (27.0-41.0); MEAN CELL VOLUME 85.3 fl (81.0-99.0); MEAN CORPUSCULAR HGB 29.1 pg (27.0-31.0); MEAN CORPUSCULAR HGB CONC 34.1 g/dl (33.0-37.0); MEAN PLATELET VOLUME 9.4 fl (9.6-12.3); MONO # 1.1 10*3/uL (0.1-1.0); MONO % 8.5 % (3.0-9.0); NEUT # 8.7 10*3/uL (2.3-7.9); NEUT % 69.4 % (47.0-73.0); PLATELET COUNT AUTOMATED 277 10*3/uL (130-400); RED BLOOD COUNT 4.23 10*6/uL (4.10-5.10); RED CELL DISTRI WIDTH 13.2 % (0-14.5); WHITE BLOOD COUNT 12.5 10*3/uL (4.8-10.8)
[2017-12-09 22:32] LABS: ALBUMIN 3.7 gm/dl (3.1-4.5); ALKALINE PHOSPHATASE 118 U/L (45-117); BUN 11 mg/dl (7-24); CHLORIDE 104 mmol/L (98-107); CREATININE 0.88 mg/dL (0.55-1.02); POTASSIUM 3.5 mmol/L (3.5-5.1); SGOT/AST 13 IU/L (3-35); SGPT/ALT 24 U/L (12-78); SODIUM 140 mmol/L (136-145); TOTAL PROTEIN 7.7 gm/dL (6.4-8.2)
[2017-12-10] MEDS ORDERED: FLONASE ALLERG9.9 ML NAS (00:11)
[2017-12-10] MEDS ORDERED: ZYRTEC10 MG PO (00:11)
[2017-12-10] MEDS ORDERED: AUGMENTIN 875875 MG PO (00:11)
== END 2017-12-10 00:15 | disposition home or self-care (01) ==
LOC: ED 21:24
PROVIDERS: Physician Assistant
DX: J03.90 Acute tonsillitis, unspecified (principal); J01.00 Acute maxillary sinusitis, unspecified; Z87.891 Personal history of nicotine dependence; Z90.49 Acquired absence of other specified parts of digestive tract; Z90.710 Acquired absence of both cervix and uterus; Z98.890 Other specified postprocedural states; Z79.82 Long term (current) use of aspirin; Z79.899 Other long term (current) drug therapy; Z88.6 Allergy status to analgesic agent; Z88.8 Allergy status to other drugs, medicaments and biological substances

== ENCOUNTER 2018-01-31 07:52 | Emergency (ER) | payer MEDICAID ==
[~2018-01-31] VITALS: Ht 165.1 cm; Wt 94.3 kg
[~2018-01-31 07:52] MED LIST changes: +AUGMENTIN 875875 MG PO; +FLONASE ALLERG9.9 ML NAS; +ZYRTEC10 MG PO
[2018-01-31 08:26] LABS: BASO % 0.5 % (0.0-1.0); EOS # 0.2 10*3/uL (0.0-0.4); EOS % 2.7 % (1.0-4.0); HEMOGLOBIN 11.9 g/dl (12.0-16.0); LYMPH # 1.8 10*3/uL (1.3-4.4); LYMPH % 22.2 % (27.0-41.0); MEAN CELL VOLUME 86.1 fl (81.0-99.0); MEAN CORPUSCULAR HGB 28.5 pg (27.0-31.0); MEAN CORPUSCULAR HGB CONC 33.1 g/dl (33.0-37.0); MEAN PLATELET VOLUME 9.6 fl (9.6-12.3); MONO # 0.7 10*3/uL (0.1-1.0); MONO % 9.2 % (3.0-9.0); NEUT # 5.2 10*3/uL (2.3-7.9); NEUT % 64.3 % (47.0-73.0); PLATELET COUNT AUTOMATED 237 10*3/uL (130-400); RED BLOOD COUNT 4.18 10*6/uL (4.10-5.10); RED CELL DISTRI WIDTH 13.1 % (0-14.5); WHITE BLOOD COUNT 8.1 10*3/uL (4.8-10.8)
[2018-01-31 08:45] LABS: ALBUMIN 3.8 gm/dl (3.1-4.5); ALKALINE PHOSPHATASE 109 U/L (45-117); BUN 13 mg/dl (7-24); CHLORIDE 105 mmol/L (98-107); CREATININE 0.93 mg/dL (0.55-1.02); POTASSIUM 3.4 mmol/L (3.5-5.1); SGOT/AST 9 IU/L (3-35); SGPT/ALT 19 U/L (12-78); SODIUM 140 mmol/L (136-145); TOTAL PROTEIN 7.5 gm/dL (6.4-8.2)
[2018-01-31 09:01] LABS: BILIRUBIN NEGATIVE (NEGATIVE); BLOOD NEGATIVE (NEGATIVE); CLARITY SL CLOUDY (CLEAR); COLOR YELLOW (YELLOW); GLUCOSE NEGATIVE (NEGATIVE); KETONE NEGATIVE (NEGATIVE); LEUKO ESTERASE 2+ (NEGATIVE); NITRITE NEGATIVE (NEGATIVE); UROBILINOGEN 0.2 E.U./dl (0.2-1.0)
[2018-01-31 09:10] LABS: URINE AMPHETAMINES < 1000 (1000ng/ml); URINE BARBITURATES < 200 (200ng/ml); URINE BENZODIAZEPINES < 200 (200ng/ml); URINE CANNABINOIDS (THC) < 50 (50ng/ml); URINE COCAINE < 300 (300ng/ml); URINE METHADONE < 300 (300ng/ml); URINE OPIATES < 300 (300ng/ml)
[2018-01-31 09:13] LABS: URINE PHENCYCLIDINE < 25 (25ng/ml)
[2018-01-31 09:19] LABS: BACTERIA 3+; RBC 0-2 rbc/hpf (0-2)
[2018-01-31] MEDS ORDERED: SEPTDS PO (11:11)
[2018-01-31] MEDS ORDERED: PYRIDIUM200 M1 PO (11:11)
== END 2018-01-31 11:16 | disposition home or self-care (01) ==
LOC: ED 07:52
PROVIDERS: Family Medicine
DX: N39.0 Urinary tract infection, site not specified (principal); I50.9 Heart failure, unspecified; K21.9 Gastro-esophageal reflux disease without esophagitis; E78.5 Hyperlipidemia, unspecified; K50.90 Crohn's disease, unspecified, without complications; R73.9 Hyperglycemia, unspecified; Z88.5 Allergy status to narcotic agent; Z88.8 Allergy status to other drugs, medicaments and biological substances; Z79.82 Long term (current) use of aspirin; Z79.899 Other long term (current) drug therapy; Z90.49 Acquired absence of other specified parts of digestive tract; Z90.710 Acquired absence of both cervix and uterus; Z90.89 Acquired absence of other organs

== ENCOUNTER 2018-02-19 18:29 | Emergency (ER) | payer MEDICAID ==
[~2018-02-19] VITALS: Ht 167.6 cm; Wt 90.7 kg
--- NOTE | ~2018-02-19 | EKG ---
[place], [place] ELECTROCARDIOGRAM REPORT NAME: DEBORA GUTIERREZ UNIT #: [id number] ROOM: DOCTOR: JEANNE DAVIDSON MD BIRTHDATE: [birth year] DOS: 02/19/2018 TIME: 1842 hours. FINDINGS: 1. Normal sinus rhythm at 81 beats per minute. 2. Low voltage in precordial leads. 3. Incomplete right bundle-branch block. 4. No previous tracing is available for comparison. JEANNE DAVIDSON MD CM:EKGRPT:ELECTROCARDIOGRAM REPORT [id number] JEANNE DAVIDSON MD
[~2018-02-19 18:29] MED LIST changes: +PYRIDIUM200 M1 PO; +SEPTDS PO
[2018-02-19 19:04] LABS: BASO % 0.4 % (0.0-1.0); EOS # 0.2 10*3/uL (0.0-0.4); EOS % 1.8 % (1.0-4.0); HEMATOCRIT 35.8 % (37.0-47.0); HEMOGLOBIN 12.1 g/dl (12.0-16.0); LYMPH # 2.4 10*3/uL (1.3-4.4); LYMPH % 21.7 % (27.0-41.0); MEAN CELL VOLUME 84.8 fl (81.0-99.0); MEAN CORPUSCULAR HGB 28.7 pg (27.0-31.0); MEAN CORPUSCULAR HGB CONC 33.8 g/dl (33.0-37.0); MEAN PLATELET VOLUME 9.7 fl (9.6-12.3); MONO # 0.8 10*3/uL (0.1-1.0); NEUT # 7.7 10*3/uL (2.3-7.9); NEUT % 68.7 % (47.0-73.0); PLATELET COUNT AUTOMATED 282 10*3/uL (130-400); RED BLOOD COUNT 4.22 10*6/uL (4.10-5.10); RED CELL DISTRI WIDTH 13.5 % (0-14.5); WHITE BLOOD COUNT 11.2 10*3/uL (4.8-10.8)
[2018-02-19 19:14] LABS: INTERNATIONAL NORM RATIO 0.9 (2.0-3.5)
[2018-02-19 19:26] LABS: ALBUMIN 3.8 gm/dl (3.1-4.5); ALKALINE PHOSPHATASE 120 U/L (45-117); BUN 10 mg/dl (7-24); CHLORIDE 107 mmol/L (98-107); CREATININE 1.19 mg/dL (0.55-1.02); LIPASE 126 U/L (73-393); POTASSIUM 3.3 mmol/L (3.5-5.1); SGOT/AST 13 IU/L (3-35); SGPT/ALT 20 U/L (12-78); SODIUM 141 mmol/L (136-145); TOTAL PROTEIN 7.6 gm/dL (6.4-8.2)
[2018-02-19 19:27] LABS: TROPONIN I < 0.015 ng/ml (<0.045)
[2018-02-19 20:42] LABS: BILIRUBIN NEGATIVE (NEGATIVE); BLOOD 1+ (NEGATIVE); CLARITY CLEAR (CLEAR); COLOR YELLOW (YELLOW); GLUCOSE NEGATIVE (NEGATIVE); KETONE NEGATIVE (NEGATIVE); LEUKO ESTERASE 1+ (NEGATIVE); NITRITE NEGATIVE (NEGATIVE); PH 5.5 (5.0-9.0); SPECIFIC GRAVITY <= 1.005 (1.005-1.030); UROBILINOGEN 0.2 E.U./dl (0.2-1.0)
[2018-02-19 20:50] LABS: BACTERIA 2+; EPITHELIAL CELLS 41-50
[2018-02-19] MEDS ORDERED: SEPTDS PO (21:32)
[2018-04-07] MEDS ORDERED: KLOR-CON M2020 ME1 PO (16:13)
[2018-04-07] MEDS ORDERED: LASIX40 MG PO (16:13)
== END 2018-02-19 21:33 | disposition home or self-care (01) ==
LOC: ED 18:29
PROVIDERS: Emergency Medicine
DX: N39.0 Urinary tract infection, site not specified (principal); R10.13 Epigastric pain; F17.200 Nicotine dependence, unspecified, uncomplicated; E66.9 Obesity, unspecified; I25.10 Atherosclerotic heart disease of native coronary artery without angina pectoris; I50.9 Heart failure, unspecified; Z90.710 Acquired absence of both cervix and uterus; Z98.890 Other specified postprocedural states; Z90.49 Acquired absence of other specified parts of digestive tract; Z79.82 Long term (current) use of aspirin; Z79.899 Other long term (current) drug therapy; Z88.8 Allergy status to other drugs, medicaments and biological substances; Z88.5 Allergy status to narcotic agent; Z88.6 Allergy status to analgesic agent

== ENCOUNTER 2018-03-18 10:42 | Emergency (ER) | payer MEDICAID ==
[~2018-03-18] VITALS: Ht 165.1 cm; Wt 95.7 kg
[2018-03-18 11:24] LABS: BILIRUBIN NEGATIVE (NEGATIVE); BLOOD NEGATIVE (NEGATIVE); CLARITY CLOUDY (CLEAR); COLOR YELLOW (YELLOW); GLUCOSE NEGATIVE (NEGATIVE); KETONE NEGATIVE (NEGATIVE); LEUKO ESTERASE NEGATIVE (NEGATIVE); NITRITE NEGATIVE (NEGATIVE); PH 5.5 (5.0-9.0); SPECIFIC GRAVITY 1.025 (1.005-1.030); UROBILINOGEN 0.2 E.U./dl (0.2-1.0)
[2018-03-18 11:33] LABS: EPITHELIAL CELLS TNTC
[2018-03-18 11:37] LABS: BASO % 0.5 % (0.0-1.0); EOS # 0.3 10*3/uL (0.0-0.4); EOS % 3.6 % (1.0-4.0); HEMATOCRIT 37.6 % (37.0-47.0); HEMOGLOBIN 12.1 g/dl (12.0-16.0); LYMPH # 1.7 10*3/uL (1.3-4.4); MEAN CELL VOLUME 88.3 fl (81.0-99.0); MEAN CORPUSCULAR HGB 28.4 pg (27.0-31.0); MEAN CORPUSCULAR HGB CONC 32.2 g/dl (33.0-37.0); MEAN PLATELET VOLUME 9.3 fl (9.6-12.3); MONO # 0.7 10*3/uL (0.1-1.0); MONO % 7.8 % (3.0-9.0); NEUT # 5.9 10*3/uL (2.3-7.9); NEUT % 67.3 % (47.0-73.0); PLATELET COUNT AUTOMATED 237 10*3/uL (130-400); RED BLOOD COUNT 4.26 10*6/uL (4.10-5.10); WHITE BLOOD COUNT 8.7 10*3/uL (4.8-10.8)
[2018-03-18 11:50] LABS: BUN 13 mg/dl (7-24); CHLORIDE 106 mmol/L (98-107); CREATININE 0.95 mg/dL (0.55-1.02); POTASSIUM 3.4 mmol/L (3.5-5.1); SODIUM 141 mmol/L (136-145)
[2018-03-18 14:37] LABS: URINE AMPHETAMINES < 1000 (1000ng/ml); URINE BARBITURATES < 200 (200ng/ml); URINE BENZODIAZEPINES < 200 (200ng/ml); URINE CANNABINOIDS (THC) < 50 (50ng/ml); URINE COCAINE < 300 (300ng/ml); URINE METHADONE < 300 (300ng/ml); URINE OPIATES < 300 (300ng/ml)
[2018-03-18 14:38] LABS: URINE PHENCYCLIDINE < 25 (25ng/ml)
[2018-03-18] MEDS ORDERED: NORCO 10-325 T1 EACH PO (14:51)
[2018-04-07] MEDS ORDERED: LASIX40 MG PO (16:13)
[2018-04-07] MEDS ORDERED: KLOR-CON M2020 ME1 PO (16:13)
== END 2018-03-18 14:57 | disposition home or self-care (01) ==
LOC: ED 10:42
PROVIDERS: Emergency Medicine
DX: M54.5 Low back pain (principal); R10.32 Left lower quadrant pain; I50.9 Heart failure, unspecified; J44.9 Chronic obstructive pulmonary disease, unspecified; K21.9 Gastro-esophageal reflux disease without esophagitis; E78.5 Hyperlipidemia, unspecified; E66.9 Obesity, unspecified; Z79.82 Long term (current) use of aspirin; Z87.891 Personal history of nicotine dependence; Z90.49 Acquired absence of other specified parts of digestive tract; Z98.890 Other specified postprocedural states; Z90.710 Acquired absence of both cervix and uterus; Z88.5 Allergy status to narcotic agent; Z88.8 Allergy status to other drugs, medicaments and biological substances; Z87.442 Personal history of urinary calculi

== ENCOUNTER 2018-05-02 18:15 | Emergency (ER) | payer MEDICAID ==
[~2018-05-02] VITALS: Ht 165.1 cm; Wt 95.7 kg
[~2018-05-02 18:15] MED LIST changes: +KLOR-CON M2020 ME1 PO; +LASIX40 MG PO; +NORCO 10-325 T1 EACH PO
[2018-05-02 19:24] LABS: BASO % 0.3 % (0.0-1.0); EOS # 0.7 10*3/uL (0.0-0.4); EOS % 5.7 % (1.0-4.0); HEMATOCRIT 34.6 % (37.0-47.0); HEMOGLOBIN 11.5 g/dl (12.0-16.0); LYMPH # 2.2 10*3/uL (1.3-4.4); MEAN CELL VOLUME 86.5 fl (81.0-99.0); MEAN CORPUSCULAR HGB 28.8 pg (27.0-31.0); MEAN CORPUSCULAR HGB CONC 33.2 g/dl (33.0-37.0); MEAN PLATELET VOLUME 9.4 fl (9.6-12.3); MONO # 0.8 10*3/uL (0.1-1.0); MONO % 6.6 % (3.0-9.0); NEUT # 7.9 10*3/uL (2.3-7.9); NEUT % 67.9 % (47.0-73.0); PLATELET COUNT AUTOMATED 280 10*3/uL (130-400); RED CELL DISTRI WIDTH 14.2 % (0-14.5); WHITE BLOOD COUNT 11.7 10*3/uL (4.8-10.8)
[2018-05-02 19:42] LABS: ALBUMIN 3.6 gm/dl (3.1-4.5); ALKALINE PHOSPHATASE 120 U/L (45-117); BUN 8 mg/dl (7-24); CHLORIDE 103 mmol/L (98-107); CREATININE 0.94 mg/dL (0.55-1.02); POTASSIUM 3.1 mmol/L (3.5-5.1); SGOT/AST 13 IU/L (3-35); SGPT/ALT 22 U/L (12-78); SODIUM 140 mmol/L (136-145); TOTAL PROTEIN 7.5 gm/dL (6.4-8.2)
[2018-05-02] MEDS ORDERED: ROBITUSSIN DM 105 ML PO (20:04)
[2018-05-02] MEDS ORDERED: PREDNISONE50 MG PO (20:04)
[2018-05-02] MEDS ORDERED: AUGMENTIN 875875 MG PO (20:04)
== END 2018-05-02 20:16 | disposition home or self-care (01) ==
LOC: ED 18:15
PROVIDERS: Nurse Practitioner Family
DX: J20.9 Acute bronchitis, unspecified (principal); Z87.891 Personal history of nicotine dependence; Z88.8 Allergy status to other drugs, medicaments and biological substances; Z88.5 Allergy status to narcotic agent; Z79.82 Long term (current) use of aspirin; Z79.899 Other long term (current) drug therapy; Z90.710 Acquired absence of both cervix and uterus; Z90.49 Acquired absence of other specified parts of digestive tract; Z90.89 Acquired absence of other organs

== ENCOUNTER 2018-06-25 12:51 | Emergency (ER) | payer MEDICAID ==
[~2018-06-25 12:51] MED LIST changes: +ROBITUSSIN DM 105 ML PO
[2018-06-25] MEDS ORDERED: MEDROL DOSEPAK4 MG PO (14:45)
== END 2018-06-25 13:55 | disposition home or self-care (01) ==
LOC: ED 12:51
DX: G89.29 Other chronic pain (principal); M54.5 Low back pain; Z88.8 Allergy status to other drugs, medicaments and biological substances; Z88.6 Allergy status to analgesic agent; Z79.82 Long term (current) use of aspirin; Z87.891 Personal history of nicotine dependence

== ENCOUNTER 2018-07-25 14:58 | Inpatient (IN) | payer MEDICAID ==
[~2018-07-25] VITALS: Ht 165.1 cm; Wt 97.3 kg
[2018-07-25] VITALS (7 sets, daily range): BP systolic 106–144; BP diastolic 47–94
--- NOTE | ~2018-07-25 | EKG ---
[place], [place] ELECTROCARDIOGRAM REPORT NAME: DEBORA GUTIERREZ UNIT #: [id number] ROOM: 406 DOCTOR: HILDA DRAFT REPORT BIRTHDATE: [birth year] [facility] Test Date: 2018-07-25 Test Time: 22:49:51 Pat Name: DEBORA GUTIERREZ Department: Room: 406 1 Gender: F Yarn Washer: Sheryl Loomis : 1965 Requested By: MOHIT DELUCA Order Number: [id number] Reading MD: Valerio Marino MD Measurements Intervals [place] Rate: 60 P: 53 RI: 189 QRS: -18 QRSD: 103 T: 22 QT: 441 QTc: 441 Interpretive Statements Sinus rhythm Low voltage, precordial leads RSR' in V1 or V2, probably normal variant Nonspecific T abnormalities, anterior leads Compared to ECG 07/25/2018 No significant change T-wave abnormality still present Electronically Signed On 07-26-2018 18:08:32 PST by Valerio Marino MD CM:EKGRPT:ELECTROCARDIOGRAM REPORT 1808 MOHIT SKY DRAFT REPORT MOHIT DELUCA DO
--- NOTE | ~2018-07-25 | EKG ---
[place], [place] ELECTROCARDIOGRAM REPORT NAME: DEBORA GUTIERREZ UNIT #: [id number] ROOM: 406 DOCTOR: HILDA DRAFT REPORT BIRTHDATE: [birth year] [facility] Test Date: 2018-07-25 Test Time: 20:24:22 Pat Name: DEBORA GUTIERREZ Department: Room: 406 1 Gender: F End Lathe Operator: [email or web address] : 1965 Requested By: MOHIT DELUCA Order Number: [id number] Reading MD: Valerio Marino MD Measurements Intervals [place] Rate: 70 P: 51 IN: 178 QRS: -13 QRSD: 98 T: 14 QT: 401 QTc: 433 Interpretive Statements Sinus rhythm Low voltage, precordial leads RSR' in V1 or V2, right VCD or RVH Nonspecific T abnormalities, anterior leads Compared to ECG 04/06/2018 21:40:30 No significant changes Electronically Signed On 07-25-2018 21:35:37 PST by Valerio Marino MD CM:EKGRPT:ELECTROCARDIOGRAM REPORT 23 34 MOHIT SKY DRAFT REPORT MOHIT DELUCA DO
--- NOTE | ~2018-07-25 | EKG ---
[place], [place] ELECTROCARDIOGRAM REPORT NAME: DEBORA GUTIERREZ UNIT #: [id number] ROOM: 406 DOCTOR: HILDA DRAFT REPORT BIRTHDATE: [birth year] [facility] Test Date: 2018-07-25 Test Time: 15:03:15 Pat Name: DEBORA GUTIERREZ Department: ER Room: 406 Gender: F Bias Binding Cutter: Michele Li : 1965 Requested By: ALYSON DELUCA Order Number: [id number] Reading MD: Valerio Marino MD Measurements Intervals [place] Rate: 106 P: 49 [place]: 166 QRS: -29 QRSD: 89 T: 26 QT: 331 QTc: 440 Interpretive Statements Sinus tachycardia Probable left atrial enlargement Borderline left axis deviation Low voltage, precordial leads Abnormal R-wave progression, late transition Nonspecific T abnormalities, anterior leads Compared to ECG 04/06/2018 21:40:30 Sinus rhythm no longer present T-wave abnormality still present Electronically Signed On 07-25-2018 21:25:59 PST by Valerio Marino MD CM:EKGRPT:ELECTROCARDIOGRAM REPORT 1503 24 ALYSON SKY DRAFT REPORT ALYSON DELUCA DO
[~2018-07-25 14:58] MED LIST changes: +MEDROL DOSEPAK4 MG PO
[2018-07-25 15:34] LABS: BASO % 0.2 % (0.0-1.0); EOS # 0.2 10*3/uL (0.0-0.4); EOS % 2.8 % (1.0-4.0); HEMATOCRIT 36.4 % (37.0-47.0); HEMOGLOBIN 12.2 g/dl (12.0-16.0); LYMPH # 1.8 10*3/uL (1.3-4.4); LYMPH % 20.9 % (27.0-41.0); MEAN CELL VOLUME 87.1 fl (81.0-99.0); MEAN CORPUSCULAR HGB 29.2 pg (27.0-31.0); MEAN CORPUSCULAR HGB CONC 33.5 g/dl (33.0-37.0); MEAN PLATELET VOLUME 9.4 fl (9.6-12.3); MONO # 0.7 10*3/uL (0.1-1.0); NEUT # 5.8 10*3/uL (2.3-7.9); NEUT % 67.7 % (47.0-73.0); PLATELET COUNT AUTOMATED 250 10*3/uL (130-400); RED BLOOD COUNT 4.18 10*6/uL (4.10-5.10); RED CELL DISTRI WIDTH 13.4 % (0-14.5); WHITE BLOOD COUNT 8.5 10*3/uL (4.8-10.8)
[2018-07-25 15:43] LABS: ACT PARTIAL THROMBO TIME 24.7 SECONDS (20.8-31.5); INTERNATIONAL NORM RATIO 0.9 (2.0-3.5)
[2018-07-25 15:57] LABS: ALBUMIN 3.4 gm/dl (3.1-4.5); ALKALINE PHOSPHATASE 112 U/L (45-117); BUN 7 mg/dl (7-24); CHLORIDE 106 mmol/L (98-107); CREATININE 0.93 mg/dL (0.55-1.02); LIPASE 100 U/L (73-393); POTASSIUM 3.6 mmol/L (3.5-5.1); SGOT/AST 17 IU/L (3-35); SGPT/ALT 24 U/L (12-78); SODIUM 141 mmol/L (136-145); TOTAL PROTEIN 7.5 gm/dL (6.4-8.2)
[2018-07-25 15:58] LABS: TROPONIN I < 0.015 ng/ml (<0.045)
[2018-07-26] VITALS (7 sets, daily range): BP systolic 78–104; BP diastolic 42–72
[2018-07-26 06:35] LABS: BASO % 0.4 % (0.0-1.0); EOS # 0.2 10*3/uL (0.0-0.4); EOS % 2.5 % (1.0-4.0); HEMATOCRIT 35.5 % (37.0-47.0); HEMOGLOBIN 11.3 g/dl (12.0-16.0); LYMPH # 2.2 10*3/uL (1.3-4.4); LYMPH % 30.2 % (27.0-41.0); MEAN CELL VOLUME 89.6 fl (81.0-99.0); MEAN CORPUSCULAR HGB 28.5 pg (27.0-31.0); MEAN CORPUSCULAR HGB CONC 31.8 g/dl (33.0-37.0); MEAN PLATELET VOLUME 9.7 fl (9.6-12.3); MONO # 0.6 10*3/uL (0.1-1.0); MONO % 8.7 % (3.0-9.0); NEUT # 4.1 10*3/uL (2.3-7.9); NEUT % 57.8 % (47.0-73.0); PLATELET COUNT AUTOMATED 229 10*3/uL (130-400); RED BLOOD COUNT 3.96 10*6/uL (4.10-5.10); RED CELL DISTRI WIDTH 13.6 % (0-14.5); WHITE BLOOD COUNT 7.1 10*3/uL (4.8-10.8)
[2018-07-26 06:53] LABS: ALBUMIN 3.1 gm/dl (3.1-4.5); ALKALINE PHOSPHATASE 94 U/L (45-117); BUN 11 mg/dl (7-24); CHLORIDE 107 mmol/L (98-107); CREATININE 0.97 mg/dL (0.55-1.02); SGOT/AST 14 IU/L (3-35); SGPT/ALT 20 U/L (12-78); SODIUM 143 mmol/L (136-145); TOTAL PROTEIN 6.8 gm/dL (6.4-8.2)
[2018-07-26 06:54] LABS: FREE T4 1.02 ng/dl (0.76-1.46)
[2018-07-26 06:57] LABS: POTASSIUM 3.8 mmol/L (3.5-5.1)
[2018-07-26 07:41] LABS: VITAMIN D, 25-HYDROXY 15.6 ng/mL (30-100)
[2018-07-26] MEDS ORDERED: VITAMIN D32000 UNI1 PO (17:28)
== END 2018-07-26 17:51 | disposition home or self-care (01) | DRG 313 ==
LOC: ED 14:58 → EDHOLD 18:27 → 4E 18:34
PROVIDERS: Emergency Medicine; Internal Medicine
PROC: 4A02XM4 Measurement of Cardiac Total Activity, External Approach (ICD-10-PCS; principal; 2018-07-26)
PROC: 3E073KZ Introduction of Other Diagnostic Substance into Coronary Artery, Percutaneous Approach (ICD-10-PCS; 2018-07-26)
DX: R07.89 Other chest pain (principal); E44.1 Mild protein-calorie malnutrition; K50.90 Crohn's disease, unspecified, without complications; I50.32 Chronic diastolic (congestive) heart failure; I11.0 Hypertensive heart disease with heart failure; R00.0 Tachycardia, unspecified; R06.09 Other forms of dyspnea; I95.9 Hypotension, unspecified; R00.1 Bradycardia, unspecified; E78.5 Hyperlipidemia, unspecified; K21.9 Gastro-esophageal reflux disease without esophagitis; J44.9 Chronic obstructive pulmonary disease, unspecified; K29.50 Unspecified chronic gastritis without bleeding; E11.69 Type 2 diabetes mellitus with other specified complication; K44.9 Diaphragmatic hernia without obstruction or gangrene; E55.9 Vitamin D deficiency, unspecified; E66.9 Obesity, unspecified; G89.29 Other chronic pain; M54.5 Low back pain; Z90.49 Acquired absence of other specified parts of digestive tract; Z90.710 Acquired absence of both cervix and uterus; Z68.35 Body mass index [BMI] 35.0-35.9, adult; Z80.0 Family history of malignant neoplasm of digestive organs; Z82.49 Family history of ischemic heart disease and other diseases of the circulatory system; Z88.8 Allergy status to other drugs, medicaments and biological substances; Z88.6 Allergy status to analgesic agent; Z79.51 Long term (current) use of inhaled steroids; Z79.82 Long term (current) use of aspirin; Z79.899 Other long term (current) drug therapy

== ENCOUNTER 2018-08-22 18:44 | Inpatient (IN) | payer MEDICAID ==
[~2018-08-22] VITALS: Ht 165.1 cm; Wt 98.4 kg
--- NOTE | ~2018-08-22 | CON ---
[place], [place] REPORT OF CONSULTATION NAME: [facility]Z [id number] UNIT #: [id number] ROOM: 505 DOCTOR: JOHNNY JAIME MD BIRTHDATE: [birth year] DOS: GASTROENDSCOPIC CONSULTATION: HISTORY OF PRESENT ILLNESS: This is lady is a 53-year-old patient who was presented with chief complaint of epigastric abdominal pain simulating nonspecific chest pain, nonspecific gross abdominal pain, investigated white blood cell at the time of entry was 13, H and H of 12 and 37. Lactic acid was 1.7. Rapid flu was negative. INR was 0.9. Comprehensive metabolic panel, electrolyte balance, lipase normal. Liver function tests normal. A CT scan of the abdomen and pelvis was done. Findings consistent with gastroenteritis. No acute development otherwise troponin remains normal. CT scan of the head not concerning and CBC followup shows that white blood cell dropped to 11. Blood cultures, no bacterial growth. PAST MEDICAL HISTORY: Obesity, hypertension, COPD, diastolic congestive failure, history of GERD, history of Crohn's disease, history of sciatica, spinal stenosis. PAST SURGICAL HISTORY: Appendectomy, oophorectomy, hysterectomy bronchoscopies, cholecystectomy and endoscopies. SOCIAL HISTORY: Smoker up to 3 years ago. Nonalcohol consumer; however, drinking large volume of tea. FAMILY HISTORY: Noncontributory. ALLERGIES: ALLERGIC TO MULTIPLE MEDICATIONS SOMA, METHADONE, ROBAXIN, REGLAN, ZOFRAN, LYRICA, BENZODIAZEPINES. MEDICATIONS: List reviewed including aspirin. She is on the other hand on esomeprazole. Other medications reviewed. Antiemetics reviewed. REVIEW OF SYSTEMS: HEENT: Denies double vision, blurred vision. RESPIRATORY: Denies acute shortness of breath. CARDIOVASCULAR: Denies acute chest pain. DIGESTIVE SYSTEM: Epigastric distress, dyspepsia subxyphoid tenderness. PHYSICAL EXAMINATION: GENERAL: Obese patient. Well-nourished, hydrated. VITAL SIGNS: Stable. HEENT: Head normocephalic, nontraumatic. Mouth and buccal mucosa benign. NECK: Supple, no thyromegaly, no cervical lymphadenopathy. CHEST: Symmetric anatomy, equal expansion. No wheeze, no rhonchi. HEART: Normal sinus rhythm, no gallop, no murmur. ABDOMEN: Soft, obese, no abdominal mass was palpated. No pulsatile mass noticed. EXTREMITIES: Trace pedal edema bilateral. NEUROLOGIC: Fully alert, oriented to time, place, person. [place], [place] REPORT OF CONSULTATION NAME: DEBORA GUTIERREZ UNIT #: [id number] ROOM: [facility] DOCTOR: JOHNNY JAIME MD BIRTHDATE: [birth year] IMPRESSION: Nausea, epigastric distress, history of gastroenteritis, initial leukocytosis, history of Crohn's disease, history of gastroesophageal reflux, chronic obstructive pulmonary disease, diastolic congestive failure, fatty liver. All has been noticed. Stool studies have been negative. PLAN AND DISCUSSION: We are going to therefore proceed with panendoscopy and the colon can be followed up as outpatient. Since all the stool studies remained negative. As far as bacterial infection is concerned. JOHNNY JAIME MD CM:CONSTR:REPORT OF CONSULTATION 1451 08/26/18 0505 interface
--- NOTE | ~2018-08-22 | O ---
[place], [place] OPERATIVE NOTE NAME: DEBORA GUTIERREZ UNIT #: [id number] ROOM: 505 DOCTOR: JOHNNY JAIME MD BIRTHDATE: [birth year] DOS: 08/25/2018 HISTORY OF PRESENT ILLNESS: A 53-year-old patient who presented with chief complaint of epigastric abdominal pain. She is claiming that she has a history of Crohn's also. Her consultation has been already dictated. PROCEDURE: Today's procedure part of investigation is panendoscopy plus biopsy. PREMEDICATION: Propofol. SCOPE: Olympus forward-viewing gastroscope Q10 video. REPORT: After putting the patient in left lateral position and application of lubricant to the scope, the scope was introduced; thereafter, under direct visualization, advanced through the length of esophagus without difficulty. Hiatal hernia, which is about a 3 cm was noticed. This is particularly prolapsing during the gagging of the patient. Gastric pouch was entered. Mild gastritis seen and antral biopsy obtained. Duodenal bulb, second and third part within normal limits. The patient extubated after GI reflection of the scope confirmed a small hiatal hernia. IMPRESSION: Hiatal hernia, which is the area of concern that she is pinpointing that she is distress, mild gastritis otherwise. PLAN AND DISCUSSION: Protonix 40 mg daily. Elevation of the head of the bed 6 inch all time, Gaviscon as antacid of choice one tablet before going to bed and otherwise GERD diet and follow up as an outpatient. JOHNNY JAIME MD CM:OPRECORD:OPERATIVE NOTE 1502 1519 JOHNNY JAIME MD 08/25/18 1517 interface
--- NOTE | ~2018-08-22 | EKG ---
[place], [place] ELECTROCARDIOGRAM REPORT NAME: DEBORA GUTIERREZ UNIT #: [id number] ROOM: 505 DOCTOR: HILDA DRAFT REPORT BIRTHDATE: [birth year] [facility] Test Date: 2018-08-22 Test Time: 19:16:56 Pat Name: DEBORA GUTIERREZ Department: Room: 505 Gender: F Rn Intensive Care Unit: [facility] : 1965 Requested By: BLAIRE OLIVEIRA PA-C Order Number: [id number] Reading MD: Johnny Enamorado MD Measurements Intervals [place] Rate: 94 P: 62 [place]: 166 QRS: -12 QRSD: 102 T: 35 QT: 357 QTc: 447 Interpretive Statements Sinus rhythm Low voltage, precordial leads RSR' in V1 or V2, right VCD or RVH Compared to ECG 07/25/2018 22:49:51 Right ventricular hypertrophy now present T-wave abnormality no longer present Electronically Signed On 08-24-2018 8:27:04 PST by Johnny Enamorado MD CM:EKGRPT:ELECTROCARDIOGRAM REPORT 15 6 BLAIRE OLIVEIRA PA-C EPIPHANY DRAFT REPORT BLAIRE OLIVEIRA PA-C
[~2018-08-22 18:44] MED LIST changes: +VITAMIN D32000 UNI1 PO
[2018-08-22 19:23] VITALS: BP 122/86
[2018-08-22 19:29] LABS: BASO % 0.2 % (0.0-1.0); EOS # 0.1 10*3/uL (0.0-0.4); HEMATOCRIT 37.9 % (37.0-47.0); HEMOGLOBIN 12.7 g/dl (12.0-16.0); LYMPH # 0.7 10*3/uL (1.3-4.4); MEAN CELL VOLUME 86.3 fl (81.0-99.0); MEAN CORPUSCULAR HGB 28.9 pg (27.0-31.0); MEAN CORPUSCULAR HGB CONC 33.5 g/dl (33.0-37.0); MEAN PLATELET VOLUME 9.1 fl (9.6-12.3); MONO # 0.7 10*3/uL (0.1-1.0); MONO % 5.2 % (3.0-9.0); NEUT # 11.6 10*3/uL (2.3-7.9); NEUT % 88.3 % (47.0-73.0); PLATELET COUNT AUTOMATED 248 10*3/uL (130-400); RED BLOOD COUNT 4.39 10*6/uL (4.10-5.10); RED CELL DISTRI WIDTH 13.6 % (0-14.5); WHITE BLOOD COUNT 13.2 10*3/uL (4.8-10.8)
[2018-08-22 19:39] LABS: INTERNATIONAL NORM RATIO 0.9 (2.0-3.5)
[2018-08-22 19:46] LABS: ALBUMIN 3.7 gm/dl (3.1-4.5); ALKALINE PHOSPHATASE 110 U/L (45-117); BUN 15 mg/dl (7-24); CHLORIDE 108 mmol/L (98-107); CREATININE 1.01 mg/dL (0.55-1.02); LIPASE 77 U/L (73-393); POTASSIUM 3.5 mmol/L (3.5-5.1); SGOT/AST 14 IU/L (3-35); SGPT/ALT 22 U/L (12-78); SODIUM 140 mmol/L (136-145); TOTAL PROTEIN 7.7 gm/dL (6.4-8.2)
[2018-08-22 20:20] VITALS: BP 141/88
--- NOTE | 2018-08-22 20:34 | NUR ---
PATIENT HAVING DIARRHEA AND VOMITING. DRESS CUTTER NOTIFIED
[2018-08-22 20:52] VITALS: BP 126/78
[2018-08-22 21:43] VITALS: BP 128/66
--- NOTE | 2018-08-22 21:59 | NUR ---
PT STILL STATES UNABLE TO GIVE URINE, VOIDED WITH DIARRHEA
[2018-08-22 22:30] VITALS: BP 138/70
[2018-08-22] MEDS ORDERED: LASIX40 MG PO (22:43)
[2018-08-22] MEDS ORDERED: K-TAB20 MEQ PO (22:44)
--- NOTE | 2018-08-22 22:45 | NUR ---
medication list reviewed with patient.
[2018-08-23] VITALS: BP 125/78
[2018-08-23 01:31] LABS: BILIRUBIN NEGATIVE (NEGATIVE); BLOOD TRACE-INTACT (NEGATIVE); CLARITY CLEAR (CLEAR); COLOR YELLOW (YELLOW); GLUCOSE NEGATIVE (NEGATIVE); KETONE NEGATIVE (NEGATIVE); LEUKO ESTERASE NEGATIVE (NEGATIVE); NITRITE NEGATIVE (NEGATIVE); PH 5.5 (5.0-9.0); SPECIFIC GRAVITY 1.025 (1.005-1.030); UROBILINOGEN 0.2 E.U./dl (0.2-1.0)
[2018-08-23 04:36] LABS: BASO % 0.1 % (0.0-1.0); EOS % 0.1 % (1.0-4.0); HEMATOCRIT 33.6 % (37.0-47.0); HEMOGLOBIN 11.4 g/dl (12.0-16.0); LYMPH # 0.8 10*3/uL (1.3-4.4); LYMPH % 7.6 % (27.0-41.0); MEAN CELL VOLUME 86.6 fl (81.0-99.0); MEAN CORPUSCULAR HGB 29.4 pg (27.0-31.0); MEAN CORPUSCULAR HGB CONC 33.9 g/dl (33.0-37.0); MEAN PLATELET VOLUME 9.4 fl (9.6-12.3); MONO # 0.6 10*3/uL (0.1-1.0); MONO % 5.7 % (3.0-9.0); NEUT # 9.1 10*3/uL (2.3-7.9); NEUT % 86.1 % (47.0-73.0); PLATELET COUNT AUTOMATED 234 10*3/uL (130-400); RED BLOOD COUNT 3.88 10*6/uL (4.10-5.10); RED CELL DISTRI WIDTH 13.9 % (0-14.5); WHITE BLOOD COUNT 10.6 10*3/uL (4.8-10.8)
[2018-08-23 04:51] LABS: ALBUMIN 3.2 gm/dl (3.1-4.5); ALKALINE PHOSPHATASE 91 U/L (45-117); BUN 15 mg/dl (7-24); CHLORIDE 111 mmol/L (98-107); CREATININE 0.86 mg/dL (0.55-1.02); PHOSPHOROUS 3.5 mg/dL (2.5-4.9); POTASSIUM 3.4 mmol/L (3.5-5.1); SGOT/AST 14 IU/L (3-35); SGPT/ALT 22 U/L (12-78); SODIUM 142 mmol/L (136-145); TOTAL PROTEIN 6.7 gm/dL (6.4-8.2)
[2018-08-23 08:00] VITALS: BP 92/47
--- NOTE | 2018-08-23 08:24 | NUR ---
PT MEDICATED WITH PRN MORPHINE FOR C/O RUQ ABDOMINAL PAIN. PT RATES PAIN 05/01. WILL REACCESS.
--- NOTE | 2018-08-23 09:00 | NUR ---
PT RESTING IN BED WITH EYES CLOSED. PRN MORPHINE APPEARS EFFECTIVE.
--- NOTE | 2018-08-23 11:25 | NUR ---
Health Sciences Program Coordinator in to talk to patient. Patient states lives at HOME with . There are FEW steps in the home. Physician: [facility] Pharmacy: [facility] health services: NONE Patient's level of ADLs: INDEPENDENT Patient has working utilities: YES DME: [facility] Follow-up physician's appointment after d/c: WILL BE MADE BY HOSPITALIST NURSE DIRECTOR ON DISCHARGE Does patient want to access PORTAL?: NO Discharge plan PT STATES SHE LIVES AT HOME AND IS INDEPENDENT IN HER CARE. USES A [facility] FOR AMBULATION BUT HAS NO OTHER NEEDS AT HOME AT THIS TIME. WILL CONTINUE TO FOLLOW.. DARIEN MOREJON
[2018-08-23 12:00] VITALS: BP 96/47
--- NOTE | 2018-08-23 14:54 | NUR ---
PRN MORPHINE GIVEN PER PT REQUEST DUE TO RUQ ABDOMINAL PAIN THAT SHE RATES A 9/10. WILL REACCESS.
[2018-08-23 16:00] VITALS: BP 105/50
--- NOTE | 2018-08-23 16:00 | NUR ---
PRN MORPHINE APPEARS EFFECTIVE. PT RESTING IN BED WITH EYES CLOSED. WILL CONTINUE TO MONITOR.
[2018-08-23 20:00] VITALS: BP 119/56
--- NOTE | 2018-08-23 21:01 | NUR ---
MEDICATED WITH PRN MORPHINE FOR C/O PAIN IN BACK RATED 9/10 ON A 0/10 PAIN SCALE
--- NOTE | 2018-08-23 21:54 | NUR ---
24 HR chart check completed.
[2018-08-24] VITALS: BP 127/62
--- NOTE | 2018-08-24 03:10 | NUR ---
medicated with prn morphine for c/o pain in the abd rated 8/10 on a 0/10 pain scale
--- NOTE | 2018-08-24 03:15 | NUR ---
DR SHIELDS AWARE OF NO IV ACCESS AT THIS TIME
--- NOTE | 2018-08-24 03:19 | NUR ---
DR SHIELDS STATES TO REMOVE PAINFUL IV SITE AND WILL LET THE DAY TEAM KNOW
--- NOTE | 2018-08-24 03:25 | NUR ---
IV HEP LOCK IN RIGHT ARM AND ACCUCATH IN LEFT ARM BOTH REMOVED WITH SCANT BLOOD NOTED. CATHETERS INTACT. PATIENT TOLERATED WELL
[2018-08-24 05:52] LABS: BASO % 0.1 % (0.0-1.0); EOS # 0.2 10*3/uL (0.0-0.4); EOS % 2.8 % (1.0-4.0); HEMATOCRIT 35.3 % (37.0-47.0); HEMOGLOBIN 11.6 g/dl (12.0-16.0); LYMPH # 1.4 10*3/uL (1.3-4.4); LYMPH % 19.5 % (27.0-41.0); MEAN CELL VOLUME 88.5 fl (81.0-99.0); MEAN CORPUSCULAR HGB 29.1 pg (27.0-31.0); MEAN CORPUSCULAR HGB CONC 32.9 g/dl (33.0-37.0); MEAN PLATELET VOLUME 9.2 fl (9.6-12.3); MONO # 0.7 10*3/uL (0.1-1.0); MONO % 9.8 % (3.0-9.0); NEUT # 4.8 10*3/uL (2.3-7.9); NEUT % 67.5 % (47.0-73.0); PLATELET COUNT AUTOMATED 217 10*3/uL (130-400); RED BLOOD COUNT 3.99 10*6/uL (4.10-5.10); RED CELL DISTRI WIDTH 13.7 % (0-14.5)
[2018-08-24 06:01] LABS: BUN 9 mg/dl (7-24); CHLORIDE 109 mmol/L (98-107); CREATININE 0.88 mg/dL (0.55-1.02); POTASSIUM 3.1 mmol/L (3.5-5.1); SODIUM 143 mmol/L (136-145)
[2018-08-24 08:00] VITALS: BP 133/78
--- NOTE | 2018-08-24 09:16 | NUR ---
DATIENT MEDICATED WITH NORCO AT THIS TIME FOR COMPLAINTS OF PAIN IN HER ABDOMEN AND HEAD. PATIENT RATES HER PAIN AN 9/10. WILL CONTINUE TO MONITOR FOR EFFECTIVENESS.
--- NOTE | 2018-08-24 10:22 | NUR ---
SPOKE WITH DR. AMADO. STATED HE WILL PLACE PATIENT'S MIDLINE.
--- NOTE | 2018-08-24 10:49 | NUR ---
SPOKE WITH DR. JAIME AT THIS TIME. AWARE OF CONSULT. STATED TO MAKE PATIENT NPO AT MIDNIGHT TONIGHT, EGD TOMORROW 08/25/18.
[2018-08-24 12:00] VITALS: BP 138/74
--- NOTE | 2018-08-24 12:36 | NUR ---
PATIENT FINISHED WITH ORAL CONTRAST AT THIS TIME. CALLED DR. AMADO TO SEE WHAT TIME HE WILL BE ABLE TO PLACE MIDLINE. STATES HE IS STILL DOING MORNING ROUNDS. CT CALLED AND MADE AWARE THAT PATIENT IS FINISHED WITH HER ORAL CONTRAST BUT STILL WAITING FOR A MIDLINE.
--- NOTE | 2018-08-24 15:37 | NUR ---
CALLED AGAIN CONCERNING PATIENTS MIDLINE. STATED HE DID NOT FORGET AND THAT HE WILL BE UP TO DO IT WHEN HE GETS TIME.
[2018-08-24 16:00] VITALS: BP 126/74
--- NOTE | 2018-08-24 16:57 | NUR ---
patient medicated with morphine at this time per dr. redd. patient complaining of pain in her abdomen. will continue to monitor for effectiveness.
--- NOTE | 2018-08-24 18:21 | NUR ---
PATIENT MEDICATED WITH PHENERGAN AT THIS TIME FOR COMPLAINTS OF NAUSEA. WILL MONITOR FOR EFFECTIVENESS.
--- NOTE | 2018-08-24 19:00 | NUR ---
PATIENT RESTING IN BED WITH NO S/S OF DISTRESS. NO NEEDS MADE. DENIES PAIN AT THIS TIME. BED IN LOWEST POSITION, CALL LIGHT IN REACH
[2018-08-24 20:00] VITALS: BP 104/59
--- NOTE | 2018-08-24 21:24 | NUR ---
DR SHIELDS STATES TO HOLD BLOOD PRESSURE MEDICATION DUE TO BLOOD PRESSURE
--- NOTE | 2018-08-24 23:16 | NUR ---
MEDICATED WITH PRN NORCO FOR C/O ABD PAIN RATED 9/10 ON A 0/10 PAIN SCALE
[2018-08-25] VITALS (9 sets, daily range): BP systolic 101–129; BP diastolic 51–77
--- NOTE | 2018-08-25 00:16 | NUR ---
PATIENT STATES NORCO WAS NOT EFFECTIVE. RESTING IN BED WITH NO S/S OF DISTRESS. WATCHING TV. BED IN LOWEST POSITION, CALL LIGHT IN REACH
--- NOTE | 2018-08-25 01:17 | NUR ---
MEDICATED WITH PRN MORPHINE FOR C/O PAIN RATED 8/10 ON A 0/10 PAIN SCALE
--- NOTE | 2018-08-25 01:53 | NUR ---
24 HR chart check completed.
[2018-08-25 06:13] LABS: BILIRUBIN NEGATIVE (NEGATIVE); BLOOD NEGATIVE (NEGATIVE); CLARITY CLEAR (CLEAR); COLOR YELLOW (YELLOW); GLUCOSE NEGATIVE (NEGATIVE); KETONE NEGATIVE (NEGATIVE); LEUKO ESTERASE NEGATIVE (NEGATIVE); NITRITE NEGATIVE (NEGATIVE); UROBILINOGEN 0.2 E.U./dl (0.2-1.0)
[2018-08-25 06:32] LABS: BASO % 0.3 % (0.0-1.0); EOS # 0.2 10*3/uL (0.0-0.4); EOS % 3.1 % (1.0-4.0); HEMATOCRIT 38.3 % (37.0-47.0); HEMOGLOBIN 12.2 g/dl (12.0-16.0); LYMPH # 1.3 10*3/uL (1.3-4.4); LYMPH % 18.4 % (27.0-41.0); MEAN CELL VOLUME 89.3 fl (81.0-99.0); MEAN CORPUSCULAR HGB 28.4 pg (27.0-31.0); MEAN CORPUSCULAR HGB CONC 31.9 g/dl (33.0-37.0); MEAN PLATELET VOLUME 9.2 fl (9.6-12.3); MONO # 0.6 10*3/uL (0.1-1.0); MONO % 9.1 % (3.0-9.0); NEUT # 4.9 10*3/uL (2.3-7.9); NEUT % 68.7 % (47.0-73.0); PLATELET COUNT AUTOMATED 230 10*3/uL (130-400); RED BLOOD COUNT 4.29 10*6/uL (4.10-5.10); RED CELL DISTRI WIDTH 13.7 % (0-14.5); WHITE BLOOD COUNT 7.1 10*3/uL (4.8-10.8)
[2018-08-25 07:00] LABS: ALBUMIN 3.2 gm/dl (3.1-4.5); ALKALINE PHOSPHATASE 90 U/L (45-117); BUN 7 mg/dl (7-24); CHLORIDE 112 mmol/L (98-107); CREATININE 0.91 mg/dL (0.55-1.02); POTASSIUM 4.1 mmol/L (3.5-5.1); SGOT/AST 26 IU/L (3-35); SGPT/ALT 27 U/L (12-78); SODIUM 143 mmol/L (136-145); TOTAL PROTEIN 6.8 gm/dL (6.4-8.2)
[2018-08-25 07:45] LABS: BACTERIA 2+
--- NOTE | 2018-08-25 08:47 | NUR ---
PRN ORDER FOR MORPHINE AND PHERNERGAN GIVEN FOR C/O ABDOMINAL PAIN AND NAUSEA. WILL MONITOR FOR EFFECTIVENESS OF MEDICATION.
--- NOTE | 2018-08-25 10:00 | NUR ---
PRN ORDER FOR MORPHINE AND PHENERGAN EFFECTIVE PER PT
--- NOTE | 2018-08-25 12:50 | NUR ---
PT TAKEN OFF FLOOR VIA BED TO OR FOR EGD.
--- NOTE | 2018-08-25 23:19 | NUR ---
PRN NORCO GIVEN FOR PT COMPLAINTS OF 8/10 ABDOMINAL PAIN. CALL LIGHT WITHIN REACH, WILL MONITOR
[2018-08-26] VITALS: BP 121/78
--- NOTE | 2018-08-26 00:44 | NUR ---
PRN MORPHINE GIVEN FOR PT COMPLAINTS OF 10/10 ABDOMINAL PAIN. STATES NORCO INEFFECTIVE, CALL LIGHT WITHIN REACH, WILL MONITOR
--- NOTE | 2018-08-26 01:32 | NUR ---
PRN MEDICATION APPEARS EFFECTIVE, PT SLEEPING
--- NOTE | 2018-08-26 06:48 | NUR ---
PRN MORPHINE GIVEN FOR PT COMPLIANTS OF 8/10 ABD PAIN. CALL LIGHT WITHIN REACH, WILL MONITOR
[2018-08-26 06:50] LABS: BASO % 0.1 % (0.0-1.0); HEMATOCRIT 33.5 % (37.0-47.0); HEMOGLOBIN 11.1 g/dl (12.0-16.0); LYMPH # 0.8 10*3/uL (1.3-4.4); LYMPH % 7.6 % (27.0-41.0); MEAN CELL VOLUME 86.3 fl (81.0-99.0); MEAN CORPUSCULAR HGB 28.6 pg (27.0-31.0); MEAN CORPUSCULAR HGB CONC 33.1 g/dl (33.0-37.0); MEAN PLATELET VOLUME 9.3 fl (9.6-12.3); MONO # 0.4 10*3/uL (0.1-1.0); MONO % 3.8 % (3.0-9.0); NEUT # 9.5 10*3/uL (2.3-7.9); NEUT % 87.8 % (47.0-73.0); PLATELET COUNT AUTOMATED 242 10*3/uL (130-400); RED BLOOD COUNT 3.88 10*6/uL (4.10-5.10); RED CELL DISTRI WIDTH 13.2 % (0-14.5); WHITE BLOOD COUNT 10.8 10*3/uL (4.8-10.8)
[2018-08-26 07:05] LABS: BUN 9 mg/dl (7-24); CHLORIDE 107 mmol/L (98-107); CREATININE 0.82 mg/dL (0.55-1.02); POTASSIUM 3.6 mmol/L (3.5-5.1); SODIUM 141 mmol/L (136-145)
[2018-08-26 08:00] VITALS: BP 120/64
--- NOTE | 2018-08-26 08:24 | NUR ---
C/O NAUSEA. IV PHENERGAN GIVEN AT THIS TIME. WILL CONT TO MONITOR. CALL LIGHT IN REACH.
--- NOTE | 2018-08-26 09:24 | NUR ---
IV PHENERGAN EFF PER PT. WILL CONT TO MONITOR. CALL LIGHT IN REACH.
[2018-08-26 12:00] VITALS: BP 134/70
--- NOTE | 2018-08-26 13:15 | NUR ---
MEDICATED WITH MORPHINE PER PRN ORDER FOR COMPLAINTS OF 9/10 ABD PAIN. WILL MONITOR FOR EFFECTIVENESS.
--- NOTE | 2018-08-26 15:41 | NUR ---
IV PHENERGAN EFF AT THIS TIME. WILL CONT TO MONITOR. CALL LIGHT IN REACH.
[2018-08-26 16:00] VITALS: BP 129/75
--- NOTE | 2018-08-26 16:41 | NUR ---
IV PHENERGAN GIVEN FOR C/O NAUSEA. WILL CONT TO MONITOR. CALL LIGHT IN REACH.
--- NOTE | 2018-08-26 19:45 | NUR ---
MORPHINE GIVEN FOR COMPLAINTS OF ABDOMINAL PAIN. RATES PAIN 5/10. DESCRIBES PAIN A PULLING SENSATION.
[2018-08-26 20:00] VITALS: BP 134/74
--- NOTE | 2018-08-26 20:35 | NUR ---
24 HR chart check completed.
--- NOTE | 2018-08-26 20:45 | NUR ---
DENIES PAIN. MORPHINE EFFECTIVE.
[2018-08-27] VITALS: BP 124/61
--- NOTE | 2018-08-27 01:57 | NUR ---
MORPHINE GIVEN FOR ABDOMINAL PAIN ORDERED AND PER PATIENT REQUEST.
--- NOTE | 2018-08-27 02:54 | NUR ---
Requested and medicated with Phenergan at 9249 for complaints of nausea. Will continue to monitor.
--- NOTE | 2018-08-27 02:57 | NUR ---
DENIES PAIN. MORPHINE EFFECTIVE.
--- NOTE | 2018-08-27 03:28 | NUR ---
PATIENT ASLEEP. NO SIGNS OF NAUSEA. PHENERGAN EFFECTIVE.
[2018-08-27 06:37] LABS: HEMATOCRIT 32.8 % (37.0-47.0); HEMOGLOBIN 10.8 g/dl (12.0-16.0); MEAN CELL VOLUME 86.5 fl (81.0-99.0); MEAN CORPUSCULAR HGB 28.5 pg (27.0-31.0); MEAN CORPUSCULAR HGB CONC 32.9 g/dl (33.0-37.0); MEAN PLATELET VOLUME 9.7 fl (9.6-12.3); PLATELET COUNT AUTOMATED 261 10*3/uL (130-400); RED BLOOD COUNT 3.79 10*6/uL (4.10-5.10); RED CELL DISTRI WIDTH 13.4 % (0-14.5); WHITE BLOOD COUNT 15.2 10*3/uL (4.8-10.8)
[2018-08-27 07:00] LABS: PLATELET SUFFICIENCY NORMAL (NORMAL); TOTAL CELLS COUNTED 100 #CELLS
[2018-08-27 07:23] LABS: CHLORIDE 106 mmol/L (98-107); POTASSIUM 3.5 mmol/L (3.5-5.1); SODIUM 141 mmol/L (136-145)
[2018-08-27 07:27] LABS: BUN 12 mg/dl (7-24); CREATININE 0.86 mg/dL (0.55-1.02)
[2018-08-27 08:00] VITALS: BP 132/76
--- NOTE | 2018-08-27 08:30 | NUR ---
DR CAMEJO HERE TO ASSESS PATIENT AND DISCUSS PLAN OF CARE
--- NOTE | 2018-08-27 08:58 | NUR ---
REQUESTED AND RECEIVED MORPHINE AND PHENERGAN PER PRN ORDER FOR COMPLAINTS OF ABD PAIN RATING AN 8 AND NAUSEA. OFFERED PATIENT AG, DECLINED STATING ONLY MORPHINE WORKS. WILL MONITOR FOR EFFECTIVENESS
--- NOTE | 2018-08-27 09:00 | NUR ---
RESTING IN BED WATCHING TV. RESPIRATIONS EASY. LUNGS DIMINISHED, CLEAR. PULSE OX 96% RA. ABD DISTENDED WITH HYPOACTIVE BOWEL SOUNDS, CLAIMS DIARRHEA 1/5 WHICH IS PATIENT'S NORM. OFFERED TEDS, DECLINED BUT IS RECEIVING LOVENOX. CALL LIGHT WITHIN REACH.
--- NOTE | 2018-08-27 10:00 | NUR ---
EARLIER MEDS APPEAR EFFECTIVE. SLEEPING. RESPIRATIONS EASY. CALL LIGHT WITHIN REACH
[2018-08-27 12:00] VITALS: BP 128/66
--- NOTE | 2018-08-27 15:15 | NUR ---
CALLED TO ROOM BY PATIENT WHO IS SITTING UP IN BED, TEARFUL. PATIENT STATES "SEND ME HOME. TORADOL DOESN'T WORK FOR ME." PATIENT STATES DR WATERS IN TO SEE PATIENT AND PAIN MEDS CHANGED FROM MORPHINE TO TORADOL
--- NOTE | 2018-08-27 15:50 | NUR ---
SPOKE WITH DR CAMEJO AND EXPLAINED PATIENT THREATENING TO AMA. AGAIN EXPLAINED TO PATIENT THAT MORPHINE IS STILL ORDERED BUT TORADOL ADDED ANOTHER ALTERNATIVE. PATIENT DEFENSIVE AND STATES "I KNOW MY BODY AND WHAT WORKS, TORADOL DODESN'T. I'M NOT GOING TO BE MISERABLE." AGAIN EXPLAINED TO PATIENT THAT MORPHINE IS AVAILABLE AND ASKED PATIENT WHAT SHE WANTS MORPHINE, TORADOL OR TO LEAVE AMA. PATIENT YELLS "I WANT MORPHINE."
[2018-08-27 16:00] VITALS: BP 130/82
--- NOTE | 2018-08-27 16:10 | NUR ---
MEDICATED WITH MORPHINE IV PER PRN ORDER FOR COMPLAINTS OR RUQ ABD PAIN RATING A 9. CALL LIGHT WITHIN REACH. WILL MONITOR FOR EFFECTIVENESS
--- NOTE | 2018-08-27 17:38 | NUR ---
AFTER EATING DINNER, C/O N/V. MEDICATED WITH PHENERGAN IV PER PRN ORDER. CALL LIGHT WITHIN REACH. WILL MONITOR FOR EFFECTIVENESS
--- NOTE | 2018-08-27 18:30 | NUR ---
STATES RELIEF FROM EARLIER MEDS. CALL LIGHT WITHIN REACH. NO FURTHER VOICED COMPLAINTS
[2018-08-27 20:00] VITALS: BP 149/83
--- NOTE | 2018-08-27 20:05 | NUR ---
24 HR chart check completed.
--- NOTE | 2018-08-27 22:44 | NUR ---
C/o 5/10 addominal pain. Medicated with PRN Morphine per patient request. Will monitor for effectiveness.
--- NOTE | 2018-08-27 23:44 | NUR ---
PATIENT ASLEEP. NO SIGNS OF PAIN. MORPHINE EFFECTIVE.
[2018-08-28] VITALS: BP 137/74
--- NOTE | 2018-08-28 05:57 | NUR ---
C/O NAUSEA AND ABDOMINAL PAIN. MEDICATED WITH PRN MORPHINE AND PHENERGAN ORDERED.
--- NOTE | 2018-08-28 06:50 | NUR ---
DENIES NAUSEA AND PAIN. MORPHINE AND PHENERGAN EFFECTIVE.
[2018-08-28 08:00] VITALS: BP 148/81
[2018-08-28] MEDS ORDERED: HYDROCODONE-AC1 EAC1 PO (09:47)
[2018-08-28] MEDS ORDERED: PREDNISONE10 MG PO (09:47)
[2018-08-28] MEDS ORDERED: PHENERGAN25 M3 PO (09:47)
[2018-08-28] MEDS ORDERED: CIPRO250 MG PO (09:48)
--- NOTE | 2018-08-28 10:34 | NUR ---
PATIENT DECLINES NEED FOR WHEELCHAIR, A&OX3 WITH STEADY GAIT ASSESSED AT THIS TIME. PATIENT STATES FAMILY MEMBER WORKS IN [place] AND SHE IS GOING THERE FOR A RIDE HOME.
--- NOTE | 2018-08-28 10:34 | NUR ---
Discharge instructions reviewed with patient/family. Patient receptive and verbalizes understanding. Follow-up care arranged. Written instructions given to patient/family. NYASIA DICKEY
[2018-10-28] MEDS ORDERED: PREDNISONE20 M1 PO ×2 (08:59→09:02)
[2018-10-28] MEDS ORDERED: VIBRAMYCIN100 MG PO (08:59)
[2018-11-05] MEDS ORDERED: ATIVAN1 MG PO (14:46)
[2018-11-05] MEDS ORDERED: MEDROL DOSEPAK4 MG PO (14:46)
== END 2018-08-28 10:34 | disposition home or self-care (01) | DRG 394 ==
LOC: ED 18:44 → EDHOLD 21:46 → 5E 21:46
PROVIDERS: Family Medicine; Internal Medicine; Physician Assistant; Student in an Organized Health Care Education/Training Program; ADMIT Internal Medicine
PROC: 0DB68ZX Excision of Stomach, Via Natural or Artificial Opening Endoscopic, Diagnostic (ICD-10-PCS; principal; 2018-08-25)
DX: I88.0 Nonspecific mesenteric lymphadenitis (principal); I50.32 Chronic diastolic (congestive) heart failure; E44.1 Mild protein-calorie malnutrition; K50.919 Crohn's disease, unspecified, with unspecified complications; I13.0 Hypertensive heart and chronic kidney disease with heart failure and stage 1 through stage 4 chronic kidney disease, or unspecified chronic kidney disease; K50.90 Crohn's disease, unspecified, without complications; K29.70 Gastritis, unspecified, without bleeding; K52.9 Noninfective gastroenteritis and colitis, unspecified; E78.00 Pure hypercholesterolemia, unspecified; K44.9 Diaphragmatic hernia without obstruction or gangrene; E66.9 Obesity, unspecified; J44.9 Chronic obstructive pulmonary disease, unspecified; E86.0 Dehydration; E78.5 Hyperlipidemia, unspecified; K21.9 Gastro-esophageal reflux disease without esophagitis; G89.29 Other chronic pain; M54.5 Low back pain; I45.10 Unspecified right bundle-branch block; M54.31 Sciatica, right side; Z80.0 Family history of malignant neoplasm of digestive organs; R00.0 Tachycardia, unspecified; R73.9 Hyperglycemia, unspecified; M48.05 Spinal stenosis, thoracolumbar region; E55.9 Vitamin D deficiency, unspecified; K76.0 Fatty (change of) liver, not elsewhere classified; Z87.891 Personal history of nicotine dependence; Z88.9 Allergy status to unspecified drugs, medicaments and biological substances; Z82.3 Family history of stroke; Z81.8 Family history of other mental and behavioral disorders; Z80.8 Family history of malignant neoplasm of other organs or systems; Z82.49 Family history of ischemic heart disease and other diseases of the circulatory system; Z90.49 Acquired absence of other specified parts of digestive tract; Z90.710 Acquired absence of both cervix and uterus; Z68.36 Body mass index [BMI] 36.0-36.9, adult

== ENCOUNTER 2018-12-21 16:14 | Emergency (ER) | payer MEDICAID ==
[~2018-12-21] VITALS: Ht 165.1 cm; Wt 98.9 kg
[~2018-12-21 16:14] MED LIST changes: +ATIVAN1 MG PO; +CIPRO250 MG PO; +HYDROCODONE-AC1 EAC1 PO; +K-TAB20 MEQ PO; +PREDNISONE20 M1 PO; +VIBRAMYCIN100 MG PO
[2018-12-21] MEDS ORDERED: ADVAIR 250/501 EA INH (16:19)
[2018-12-21 16:42] LABS: BILIRUBIN NEGATIVE (NEGATIVE); BLOOD NEGATIVE (NEGATIVE); CLARITY SL CLOUDY (CLEAR); COLOR YELLOW (YELLOW); GLUCOSE NEGATIVE (NEGATIVE); KETONE NEGATIVE (NEGATIVE); LEUKO ESTERASE NEGATIVE (NEGATIVE); NITRITE NEGATIVE (NEGATIVE); PH 5.5 (5.0-9.0); SPECIFIC GRAVITY 1.025 (1.005-1.030); UROBILINOGEN 0.2 E.U./dl (0.2-1.0)
[2018-12-21 16:50] LABS: BACTERIA 1+; EPITHELIAL CELLS 21-30
[2018-12-21] MEDS ORDERED: NORCO 10-325 T1 EACH PO (18:53)
== END 2018-12-21 19:14 | disposition home or self-care (01) ==
LOC: ED 16:14
PROVIDERS: Emergency Medicine
DX: S39.012A Strain of muscle, fascia and tendon of lower back, initial encounter (principal); J44.9 Chronic obstructive pulmonary disease, unspecified; K21.9 Gastro-esophageal reflux disease without esophagitis; E78.5 Hyperlipidemia, unspecified; E66.9 Obesity, unspecified; Z79.899 Other long term (current) drug therapy; Z88.8 Allergy status to other drugs, medicaments and biological substances; Z88.6 Allergy status to analgesic agent; Z79.82 Long term (current) use of aspirin; Z87.891 Personal history of nicotine dependence; X58.XXXA Exposure to other specified factors, initial encounter; Y93.89 Activity, other specified; Y92.89 Other specified places as the place of occurrence of the external cause; Y99.8 Other external cause status

== ENCOUNTER 2019-05-13 23:17 | Inpatient (IN) | payer MEDICAID ==
[~2019-05-13] VITALS: Ht 165.1 cm; Wt 97.1 kg
[~2019-05-13 23:17] MED LIST changes: +ADVAIR 250/501 EA INH
[2019-05-13 23:18] VITALS: BP 113/83
[2019-05-14 00:13] LABS: BASO # 0.1 10*3/uL (0.0-0.1); BASO % 0.4 % (0.0-1.0); EOS # 0.9 10*3/uL (0.0-0.4); EOS % 7.3 % (1.0-4.0); HEMOGLOBIN 12.4 g/dl (12.0-16.0); LYMPH # 2.6 10*3/uL (1.3-4.4); LYMPH % 20.5 % (27.0-41.0); MEAN CORPUSCULAR HGB 30.2 pg (27.0-31.0); MEAN CORPUSCULAR HGB CONC 33.5 g/dl (33.0-37.0); MEAN PLATELET VOLUME 9.5 fl (9.6-12.3); MONO # 1.1 10*3/uL (0.1-1.0); MONO % 8.3 % (3.0-9.0); NEUT # 7.9 10*3/uL (2.3-7.9); NEUT % 62.2 % (47.0-73.0); NUCLEATED RED BLOOD CELL 0.2 % (0.0-0.0); PLATELET COUNT AUTOMATED 300 10*3/uL (130-400); RED BLOOD COUNT 4.11 10*6/uL (4.10-5.10); RED CELL DISTRI WIDTH 14.4 % (0-14.5); WHITE BLOOD COUNT 12.7 10*3/uL (4.8-10.8)
[2019-05-14 00:29] LABS: ALBUMIN 3.5 gm/dl (3.1-4.5); ALKALINE PHOSPHATASE 107 U/L (45-117); BUN 13 mg/dl (7-24); CHLORIDE 102 mmol/L (98-107); CREATININE 1.15 mg/dL (0.55-1.02); POTASSIUM 3.1 mmol/L (3.5-5.1); SGOT/AST 16 IU/L (3-35); SGPT/ALT 25 U/L (12-78); SODIUM 137 mmol/L (136-145); TOTAL PROTEIN 7.4 gm/dL (6.4-8.2)
[2019-05-14 00:30] LABS: ACT PARTIAL THROMBO TIME 25.6 SECONDS (20.0-32.1); INTERNATIONAL NORM RATIO 0.9 (2.0-3.5)
[2019-05-14 00:31] LABS: TROPONIN I < 0.015 ng/ml (<0.045)
[2019-05-14 02:49] VITALS: BP 118/70
--- NOTE | 2019-05-14 03:11 | NUR ---
SBAR REPORT GIVEM TO RINA GREEN
--- NOTE | 2019-05-14 03:50 | NUR ---
A 53 YEAR OLD FEMALE admitted to , under the services of BELKIS Stevenson DO with a diagnosis of COPD. Chief complaint is HARSH COUGH, SOB,CHEST PRESSURE. Patient arrived via stretcher from ER. Monitor applied. Initial assessment completed. Vital signs taken and recorded. BELKIS STEVENSON DO notified of admission to the unit. Orders received. See assessment for past medical history, medications and allergies. Patient and/or family oriented to unit. [facility] visitation policy reviewed. Clothing/patient valuable form completed. TRENT FUENTES
[2019-05-14 04:00] VITALS: BP 111/60
[2019-05-14] MEDS ORDERED: PERCOCET 5-3251 EACH PO (04:15)
--- NOTE | 2019-05-14 06:14 | NUR ---
IV FLUID BOLUS DONE. REMAINS LAUREANO. IV SITE HEP LOCKED. EXP WHEEZE CONT. REMAINS WITHOUT C/O'S CHEST PAIN. HARSH COUGH CONT. CONDITION GUARDED.
--- NOTE | 2019-05-14 09:00 | NUR ---
Exchange Mechanic in to talk to patient. Patient states lives at home with . There are few steps in the home. Physician: resident clinic Pharmacy: [facility] health services: none Patient's level of ADLs: INDEPENDENT Patient has working utilities: all working DME: nebulizer Follow-up physician's appointment after d/c: will be made by hospitalist nurse director upon discharge Does patient want to access PORTAL?: no Discharge plan discussed with patient she lives at home with , states she is independent in adls and ambulation, has a nebulizer and uses inhalers, no home oxygen, patient states she will returning home when able and denies any home needs, case management will follow. NICOLE BRASHER
--- NOTE | 2019-05-14 09:10 | NUR ---
Morphine given per patient request for c/o chest pain due to harsh/excessive coughing. Patient rates pain 10/10. Will monitor.
--- NOTE | 2019-05-14 10:26 | NUR ---
[place] given per patient request for c/o chest pain due to cough. Patient rates pain 8/10. Will monitor.
--- NOTE | 2019-05-14 11:15 | NUR ---
FLUTTER INSTRUCT X 10 BREATHS WITH GOOD EFFORT
[2019-05-14 11:36] VITALS: BP 114/62
--- NOTE | 2019-05-14 13:30 | NUR ---
Morphine given per patient request for c/o pain rated 10/10. Pain is in her left chest due to coughing.
--- NOTE | 2019-05-14 13:57 | NUR ---
Morphine effective. Patient satisfied, resting rates pain 7/10.
[2019-05-14 15:59] VITALS: BP 96/58
--- NOTE | 2019-05-14 18:12 | NUR ---
[place] given per patient request for c/o pain in her chest due to excessive coughing. Patient rates pain 10/10. Will monitor.
--- NOTE | 2019-05-14 19:38 | NUR ---
PATIENT SITTING UP IN BED CRYING. STATES SHE WANTS MORPHINE FOR HER PAIN IN HER BACK AND SIDES.
[2019-05-14 20:00] VITALS: BP 120/60
--- NOTE | 2019-05-14 20:27 | NUR ---
MEDICATED WITH PRN MORPHINE FOR C/O PAIN IN BACK RATED 10/10 ON A 0/10 PAIN SCALE
--- NOTE | 2019-05-14 21:14 | NUR ---
RESPIRATORY NOTIFIED OF PATIENT REQUESTING PRN DUONEB
--- NOTE | 2019-05-14 21:30 | NUR ---
MORPHINE EFFECTIVE PER PATIENT
[2019-05-15] VITALS: BP 122/71
--- NOTE | 2019-05-15 01:53 | NUR ---
24 HR chart check completed.
--- NOTE | 2019-05-15 05:31 | NUR ---
MEDICATED WITH PRN MORPHINE FOR C/O PAIN IN THE RIBS AND BACK RATED 8/10 ON A 0/10 PAIN SCALE. WILL MONITOR
[2019-05-15 07:06] LABS: HEMOGLOBIN 11.5 g/dl (12.0-16.0); MEAN CELL VOLUME 91.9 fl (81.0-99.0); MEAN CORPUSCULAR HGB 30.2 pg (27.0-31.0); MEAN CORPUSCULAR HGB CONC 32.9 g/dl (33.0-37.0); MEAN PLATELET VOLUME 9.5 fl (9.6-12.3); PLATELET COUNT AUTOMATED 321 10*3/uL (130-400); RED BLOOD COUNT 3.81 10*6/uL (4.10-5.10); RED CELL DISTRI WIDTH 14.6 % (0-14.5); WHITE BLOOD COUNT 20.3 10*3/uL (4.8-10.8)
[2019-05-15 07:36] LABS: BURR CELLS FEW; PLATELET SUFFICIENCY NORMAL (NORMAL); TOTAL CELLS COUNTED 100 #CELLS
[2019-05-15 07:37] LABS: VACUOLATION OF NEUTROPHILS SLIGHT
[2019-05-15 07:51] LABS: BUN 16 mg/dl (7-24); CHLORIDE 104 mmol/L (98-107); POTASSIUM 3.7 mmol/L (3.5-5.1); SODIUM 138 mmol/L (136-145)
[2019-05-15 07:56] LABS: CHOLESTEROL 183 mg/dL (<200); CREATININE 0.94 mg/dL (0.55-1.02); HDL CHOLESTEROL 46 mg/dl (40-60); LDL CHOLESTEROL 117 mg/dL (9-159); TRIGLYCERIDES 101 mg/dl (<150); VLDL CHOLESTEROL 20 mg/dL (6-40)
[2019-05-15 08:00] VITALS: BP 114/64
[2019-05-15 08:37] LABS: VITAMIN D, 25-HYDROXY 23.1 ng/mL (30-100)
[2019-05-15 12:00] VITALS: BP 108/50; BP 123/67
--- NOTE | 2019-05-15 12:09 | NUR ---
[facility] NURSING STUDENTS TO TAKE OFF BUILDING PERFORMANCE SPECIALIST AND PLACED IN APPROPIATE BIN.
--- NOTE | 2019-05-15 14:56 | NUR ---
Morphine given per patient request for c/o pain and tightness r/t cough. Rates pain 9/10. Will monitor,
[2019-05-15 16:00] VITALS: BP 105/59
[2019-05-15 20:00] VITALS: BP 118/59
--- NOTE | 2019-05-15 20:24 | NUR ---
medicated with prn morphine for c/o pain in back rated 6/10 on a 0/10 pain scale. will monitor
--- NOTE | 2019-05-15 21:30 | NUR ---
MORPHINE EFFECTIVE PER PATIENT
--- NOTE | 2019-05-15 22:32 | NUR ---
MEDICATED WITH PRN PHENERGAN FOR C/O NAUSEA. WILL MONITOR
[2019-05-16] VITALS (9 sets, daily range): BP systolic 95–149; BP diastolic 46–91
--- NOTE | 2019-05-16 00:19 | NUR ---
MEDICATED WITH PRN MORPHINE FOR C/O BACK PAIN. WILL MONITOR
--- NOTE | 2019-05-16 01:13 | NUR ---
24 HR chart check completed.
--- NOTE | 2019-05-16 07:38 | NUR ---
PT OFF FLOOR FOR BRONCHOSCOPY AT THIS TIME.
--- NOTE | 2019-05-16 09:00 | NUR ---
case management visits with patient, she states she will return home when medically stable, denies any home needs
--- NOTE | 2019-05-16 09:50 | NUR ---
MEDICATED WITH MORPHINE PER PRN ORDER FOR COMPLAINTS OF BACK AND RIB PAIN DUE TO COUGHING. WILL MONITOR FOR EFFECTIVENESS.
--- NOTE | 2019-05-16 11:00 | NUR ---
PT RESTING IN BED MORE COMFORTABLY, STATES EARLIER MORPHINE HELPED WITH BACK AND RIB PAIN.
--- NOTE | 2019-05-16 15:51 | NUR ---
MEDICATED WITH MORPHINE PER PRN ORDER FOR COMPLAINTS OF RIB AND BACK PAIN. WIKK MONITOR FOR EFFECTIVENESS.
--- NOTE | 2019-05-16 21:05 | NUR ---
PATIENT MEDICATED WITH PHENERGAN AND MORPHINE PER PRN ORDER FOR C/O BACK/RIB PAIN. SEE EMAR REINFORCED USE OF CALL LIGHT.
[2019-05-17] VITALS: BP 119/73
--- NOTE | 2019-05-17 | NUR ---
PATIENT RESTING QUIETLY. NO FURTHER C/O VOICED.
--- NOTE | 2019-05-17 04:25 | NUR ---
PATIENT MEDICATED WITH MORPHINE PER PRN ORDER FOR C/O BACK/RIB PAIN. RATED PAIN A 5/10 WITH 10 BEING THE WORST. SEE EMAR. REINFORCED USE OF CALL LIGHT.
[2019-05-17 06:50] LABS: HEMOGLOBIN 12.2 g/dl (12.0-16.0); MEAN CELL VOLUME 92.5 fl (81.0-99.0); MEAN CORPUSCULAR HGB 29.7 pg (27.0-31.0); MEAN CORPUSCULAR HGB CONC 32.1 g/dl (33.0-37.0); MEAN PLATELET VOLUME 9.6 fl (9.6-12.3); PLATELET COUNT AUTOMATED 293 10*3/uL (130-400); RED BLOOD COUNT 4.11 10*6/uL (4.10-5.10); RED CELL DISTRI WIDTH 14.8 % (0-14.5)
[2019-05-17 07:42] LABS: TOTAL CELLS COUNTED 100 #CELLS
[2019-05-17 07:43] LABS: PLATELET SUFFICIENCY NORMAL (NORMAL); POLYCHROMASIA SLIGHT
[2019-05-17 08:00] VITALS: BP 108/68
--- NOTE | 2019-05-17 09:00 | NUR ---
case management visits with patient, she is hoping to be going home today, patient denies any home needs
--- NOTE | 2019-05-17 09:45 | NUR ---
MEDICATED PT PER PRN ORDER WITH IV MORPHINE FOR C/O CHEST AND BACK PAINTHAT RATES 8/10 ON PAIN SCALE. PT STATES IT IS R/T HER COUGH. ALSO MEDICATED PT PER PRN ORDER WITH PHENERGAN FOR HER C/O NAUSEA.
--- NOTE | 2019-05-17 10:20 | NUR ---
PT STATES RELIEF OF EARLIER PAIN AND NAUSEA WITH EARLIER MS & ZOFRAN.
[2019-05-17 12:00] VITALS: BP 110/58
--- NOTE | 2019-05-17 14:00 | NUR ---
SPOKE WITH DR BARRETO R/T PT'S POSSIBLE DISCHARGE TODAY. DR BARRETO STATED HE WOULD CALL DR MISTRY AND DISCUSS PT'S DISCHRGE WITH HIM.
--- NOTE | 2019-05-17 14:53 | NUR ---
DR MONET CALLED AND ASKED ME TO CALL DR MISTRY R/T POSSIBLE DISCHARGE. I SPOKE WITH DR MISTRY AND HE OK'D DISCHARGE FOR TODAY. I SPOKE WITH DR BARRETO AND INFORMED HIM THAT PT CAN BE DISCAHRGED TODAY BUT THE DISCHARGING RESIDANT MUST CALL DR MISTRY'S OFFICE IN THE AM WITH CULTURE RESULTS. HE STATED UNDERSTANDING.
[2019-05-17] MEDS ORDERED: MUCINEX ER600 MG PO (14:57)
[2019-05-17] MEDS ORDERED: LEVAQUIN500 M2 PO (14:57)
[2019-05-17] MEDS ORDERED: PREDNISONE10 MG PO (14:57)
--- NOTE | 2019-05-17 15:19 | NUR ---
Discharge instructions reviewed with patient. Patient receptive and verbalizes understanding. Follow-up care arranged. Written instructions given to patient. SARAHI POON
[2019-05-17 16:02] LABS: ACID FAST SPEC PROCESSING Concentration (.)
[2019-06-27 16:05] LABS: ACID FAST CULTURE Negative (.)
== END 2019-05-17 15:19 | disposition home or self-care (01) | DRG 871 ==
LOC: ED 23:17 → 4E 05-14 02:53 → EDHOLD 05-14 02:53 → 4E 05-14 03:23
PROVIDERS: Emergency Medicine; Internal Medicine; Internal Medicine Critical Care Medicine; ADMIT Internal Medicine
PROC: 0BC98ZZ Extirpation of Matter from Lingula Bronchus, Via Natural or Artificial Opening Endoscopic (ICD-10-PCS; principal; 2019-05-16)
PROC: 0BC48ZZ Extirpation of Matter from Right Upper Lobe Bronchus, Via Natural or Artificial Opening Endoscopic (ICD-10-PCS; 2019-05-16)
PROC: 0BC88ZZ Extirpation of Matter from Left Upper Lobe Bronchus, Via Natural or Artificial Opening Endoscopic (ICD-10-PCS; 2019-05-16)
PROC: 0BC58ZZ Extirpation of Matter from Right Middle Lobe Bronchus, Via Natural or Artificial Opening Endoscopic (ICD-10-PCS; 2019-05-16)
PROC: 0BC38ZZ Extirpation of Matter from Right Main Bronchus, Via Natural or Artificial Opening Endoscopic (ICD-10-PCS; 2019-05-16)
PROC: 0BC78ZZ Extirpation of Matter from Left Main Bronchus, Via Natural or Artificial Opening Endoscopic (ICD-10-PCS; 2019-05-16)
PROC: 0BC68ZZ Extirpation of Matter from Right Lower Lobe Bronchus, Via Natural or Artificial Opening Endoscopic (ICD-10-PCS; 2019-05-16)
PROC: 0BCB8ZZ Extirpation of Matter from Left Lower Lobe Bronchus, Via Natural or Artificial Opening Endoscopic (ICD-10-PCS; 2019-05-16)
PROC: 0BC18ZZ Extirpation of Matter from Trachea, Via Natural or Artificial Opening Endoscopic (ICD-10-PCS; 2019-05-16)
DX: A41.9 Sepsis, unspecified organism (principal); J18.9 Pneumonia, unspecified organism; J44.1 Chronic obstructive pulmonary disease with (acute) exacerbation; I50.32 Chronic diastolic (congestive) heart failure; K50.919 Crohn's disease, unspecified, with unspecified complications; J44.0 Chronic obstructive pulmonary disease with (acute) lower respiratory infection; T17.590A Other foreign object in bronchus causing asphyxiation, initial encounter; J45.901 Unspecified asthma with (acute) exacerbation; F41.9 Anxiety disorder, unspecified; K21.9 Gastro-esophageal reflux disease without esophagitis; E78.5 Hyperlipidemia, unspecified; E87.6 Hypokalemia; M48.00 Spinal stenosis, site unspecified; E55.9 Vitamin D deficiency, unspecified; X58.XXXA Exposure to other specified factors, initial encounter; R73.9 Hyperglycemia, unspecified; T38.0X5A Adverse effect of glucocorticoids and synthetic analogues, initial encounter; K44.9 Diaphragmatic hernia without obstruction or gangrene; K29.50 Unspecified chronic gastritis without bleeding; D64.9 Anemia, unspecified; E66.01 Morbid (severe) obesity due to excess calories; M54.31 Sciatica, right side; Z88.6 Allergy status to analgesic agent; Z88.8 Allergy status to other drugs, medicaments and biological substances; Z79.82 Long term (current) use of aspirin; Z90.710 Acquired absence of both cervix and uterus; Z90.49 Acquired absence of other specified parts of digestive tract; Z82.3 Family history of stroke; Z82.0 Family history of epilepsy and other diseases of the nervous system; Z82.49 Family history of ischemic heart disease and other diseases of the circulatory system; Z80.0 Family history of malignant neoplasm of digestive organs; Y92.89 Other specified places as the place of occurrence of the external cause; Y93.89 Activity, other specified; Y99.8 Other external cause status; Z68.35 Body mass index [BMI] 35.0-35.9, adult